=== PATIENT | female | born 1940 | race Caucasian/White ===

== ENCOUNTER 2018-07-15 18:55 | Inpatient (IN) | payer MEDICARE, OTHER ==
[~2018-07-15] VITALS: Ht 162.6 cm; Wt 64.0 kg
[~2018-07-15 18:55] MED LIST: ASPI325; Adult Low Dose81 MG PO; Albuterol2.5 MG/0.5 INH; DIPH50; LEVSOD50 PO; LISI20 PO; METO25ER PO; Norvasc5 MG PO; PRED10 PO; TIOT18 INH
[2018-07-15 19:18] LABS: Source, Urine Catheter
[2018-07-15 19:19] LABS: BASOPHILS ABSOLUTE AUTO 0.04 K/mm3 (0.00-0.23); BASOPHILS PERCENT AUTO 0 % (0-2); EOSINOPHILS ABSOLUTE AUTO 0.04 K/mm3 (0.00-0.68); EOSINOPHILS PERCENT AUTO 0 % (0-6); Hematocrit 40.9 % (33.0-51.0); Hemoglobin 12.9 g/dL (11.5-16.0); IMMATURE GRAN ABSOLUTE AUTO 0.03 K/mm3 (0.00-0.10); IMMATURE GRAN PERCENT AUTO 0 % (0-1); LYMPHOCYTES ABSOLUTE AUTO 1.74 K/mm3 (0.84-5.20); LYMPHOCYTES PERCENT AUTO 17 % (21-46); MONOCYTES ABSOLUTE AUTO 1.14 K/mm3 (0.16-1.47); MONOCYTES PERCENT AUTO 11 % (4-13); Mean Corpuscular HGB 30.5 pg (26.0-34.0); Mean Corpuscular HGB Conc 31.5 g/dL (31.5-36.5); Mean Corpuscular Volume 97 fL (80-100); Mean Platelet Volume 8.9 fL (9.1-12.4); NEUTROPHILS ABSOLUTE AUTO 7.16 K/mm3 (1.96-9.15); NEUTROPHILS PERCENT AUTO 71 % (41-73); Platelet Count 346 K/mm3 (150-400); RDW Coefficient Variation 16.1 % (11.7-14.2); RDW Standard Deviation 57.1 fL (35.1-46.3); Red Blood Cell Count 4.23 M/mm3 (3.80-5.20); White Blood Cell Count 10.15 K/mm3 (4.00-11.30)
[2018-07-15 19:36] LABS: Appearance, Urine Clear (Clear); Bilirubin, Urine Neg (Neg); Blood, Urine 1+ (Neg); Color, Urine Yellow (P-Yellow); Glucose Qualitative, Urine Neg (Neg); Ketones, Urine Neg (Neg); Leukocyte Esterase, Urine Neg (Neg); Nitrite, Urine Neg (Neg); Protein, Urine 1+ (Neg); Urobilinogen, Urine NORM (Normal)
[2018-07-15 19:45] LABS: Bacteria Rare /hpf; Squamous Epithelial Cells Rare /hpf (Few); White Blood Cells, Urine 0-2 /hpf (0-5)
[2018-07-15 19:50] LABS: Alanine Aminotransfer (ALT/SGP 37 U/L (12-78); Albumin, Blood 3.6 g/dL (3.4-5.0); Albumin/Globulin Ratio 0.9 (0.8-1.8); Alk Phos 96 U/L (50-136); Anion Gap 5 mmol/L (6-16); Aspartate Aminotrans (AST/SGOT 70 U/L (12-37); Bilirubin, Total 0.4 mg/dL (0.1-1.0); Blood Urea Nitrogen 40 mg/dL (8-24); Bun/Creatinine Ratio 40.3 (12.0-20.0); CO2, Blood 23 mmol/L (21-32); Calcium, Blood 8.7 mg/dL (8.5-10.1); Chloride, Blood 117 mmol/L (98-108); Creatinine, Blood 0.99 mg/dL (0.40-1.00); Ethanol (Alcohol), Blood, Med <3 mg/dL; Globulin, Blood 4.1 g/dL (2.2-4.0); Glomerular Filtration Rate 57 (60-); Glucose, Blood 103 mg/dL (70-99); Potassium, Blood 3.8 mmol/L (3.5-5.5); Sodium, Blood 145 mmol/L (136-145); Total Protein, Blood 7.7 g/dL (6.4-8.2)
[2018-07-15 20:00] LABS: Troponin I 0.027 ng/mL (0.000-0.040)
[2018-07-16 05:01] LABS: Hematocrit 35.5 % (33.0-51.0); Hemoglobin 11.3 g/dL (11.5-16.0); Mean Corpuscular HGB 30.5 pg (26.0-34.0); Mean Corpuscular HGB Conc 31.8 g/dL (31.5-36.5); Mean Corpuscular Volume 96 fL (80-100); Mean Platelet Volume 9.4 fL (9.1-12.4); Platelet Count 285 K/mm3 (150-400); RDW Coefficient Variation 16.5 % (11.7-14.2); RDW Standard Deviation 57.7 fL (35.1-46.3); Red Blood Cell Count 3.71 M/mm3 (3.80-5.20); White Blood Cell Count 8.58 K/mm3 (4.00-11.30)
[2018-07-16 05:28] LABS: Alanine Aminotransfer (ALT/SGP 32 U/L (12-78); Albumin/Globulin Ratio 0.9 (0.8-1.8); Alk Phos 83 U/L (50-136); Anion Gap 5 mmol/L (6-16); Aspartate Aminotrans (AST/SGOT 54 U/L (12-37); Bilirubin, Total 0.3 mg/dL (0.1-1.0); Blood Urea Nitrogen 36 mg/dL (8-24); Bun/Creatinine Ratio 39.2 (12.0-20.0); CO2, Blood 19 mmol/L (21-32); Calcium, Blood 8.3 mg/dL (8.5-10.1); Chloride, Blood 123 mmol/L (98-108); Creatinine, Blood 0.92 mg/dL (0.40-1.00); Globulin, Blood 3.5 g/dL (2.2-4.0); Glomerular Filtration Rate >60 (60-); Glucose, Blood 159 mg/dL (70-99); Sodium, Blood 147 mmol/L (136-145); Total Protein, Blood 6.5 g/dL (6.4-8.2)
[2018-07-16 10:10] LABS: Adenovirus Not Detected (NOT DETECT); Bordetella pertussis Not Detected (NOT DETECT); Chlamydophila pneumoniae Not Detected (NOT DETECT); Coronavirus 229E Not Detected (NOT DETECT); Coronavirus HKU1 Not Detected (NOT DETECT); Coronavirus NL63 Not Detected (NOT DETECT); Coronavirus OC43 Not Detected (NOT DETECT); Human Metapneumovirus Not Detected (NOT DETECT); Human Rhinovirus/Enterovirus Not Detected (NOT DETECT); Influenza A/2009-H1 Not Detected (NOT DETECT); Influenza A/H1 Not Detected (NOT DETECT); Influenza A/H3 Not Detected (NOT DETECT); Influenza B Not Detected (NOT DETECT); Mycoplasma pneumoniae Not Detected (NOT DETECT); Parainfluenza Virus 1 Not Detected (NOT DETECT); Parainfluenza Virus 2 Not Detected (NOT DETECT); Parainfluenza Virus 3 Not Detected (NOT DETECT); Parainfluenza Virus 4 Not Detected (NOT DETECT); Respiratory Syncytial Virus Not Detected (NOT DETECT)
[2018-07-16 13:18] LABS: Influenza A Not Detected (NOT DETECT)
[2018-07-19 06:09] LABS: Anion Gap 6 mmol/L (6-16); Blood Urea Nitrogen 22 mg/dL (8-24); Bun/Creatinine Ratio 41.7 (12.0-20.0); CO2, Blood 27 mmol/L (21-32); Calcium, Blood 8.7 mg/dL (8.5-10.1); Chloride, Blood 111 mmol/L (98-108); Creatinine, Blood 0.53 mg/dL (0.40-1.00); Glomerular Filtration Rate >60 (60-); Glucose, Blood 148 mg/dL (70-99); Potassium, Blood 3.8 mmol/L (3.5-5.5); Sodium, Blood 144 mmol/L (136-145)
[2018-07-19] MEDS ORDERED: AMLO10 PO (11:53)
[2018-07-19] MEDS ORDERED: ATOR40TA PO (11:54)
[2018-07-19] MEDS ORDERED: NICO21TP TOP (11:56)
[2018-07-19] MEDS ORDERED: Azithromycin250 MG PO (11:56)
[2018-07-19] MEDS ORDERED: DULERA 200 MCG/13 GM INH (11:57)
[2018-07-19] MEDS ORDERED: PRED20 (11:58)
== END 2018-07-19 12:45 | disposition home or self-care (01) | DRG 191 ==
LOC: ER 18:55 → MEDS 20:55 → ENPENDDIS 07-19 10:00 → MEDS 07-19 12:45
PROVIDERS: Emergency Medicine; Hospitalist; Internal Medicine
DX: J44.1 Chronic obstructive pulmonary disease with (acute) exacerbation (principal); J96.11 Chronic respiratory failure with hypoxia; E03.9 Hypothyroidism, unspecified; I10 Essential (primary) hypertension; E66.9 Obesity, unspecified; Z51.5 Encounter for palliative care; Z86.73 Personal history of transient ischemic attack (TIA), and cerebral infarction without residual deficits; Z66 Do not resuscitate; Z89.511 Acquired absence of right leg below knee; Z99.81 Dependence on supplemental oxygen; F17.210 Nicotine dependence, cigarettes, uncomplicated
CPT/HCPCS: 36415; 70450; 71045; 80048; 80053; 81001; 83880; 84145; 84484; 85025; 85027; 87486; 87581; 87633; 87798; 93005; 93010; 93306; 93880; 93971; 94640; 94644; 94664; 94667; 94760; 96361; 96374; 97116; 97162; 97166; 97530; 97535; 99285-25; 99406; G0480; G8978; G8979; G8987; G8988; J1650; J2405; J2930; J7030; P9612

== ENCOUNTER → 2018-11-03 | Outpatient (CLI) | payer MEDICARE, OTHER ==
[~2018-11-03] MED LIST changes: +AMLO10 PO; +ATOR40TA PO; +Azithromycin250 MG PO; +DULERA 200 MCG/13 GM INH; +NICO21TP TOP; +PRED20
== END | disposition home or self-care (01) ==
LOC: LAB SHORT 10:10 → LAB 10:10 → LAB FUT 11-01 17:50
DX: R19.7 Diarrhea, unspecified (principal)
CPT/HCPCS: 87493

== ENCOUNTER 2019-02-03 14:45 | Inpatient (IN) | payer MEDICARE, OTHER ==
[~2019-02-03] VITALS: Ht 162.6 cm; Wt 60.1 kg
[~2019-02-03 14:45] MED LIST changes: +ALBU2.5V5 NEB; -Albuterol2.5 MG/0.5 INH; -LISI20 PO; +ZESTRIL40 MG PO
[2019-02-03 15:24] LABS: BASOPHILS ABSOLUTE AUTO 0.01 K/mm3 (0.00-0.23); BASOPHILS PERCENT AUTO 0 % (0-2); EOSINOPHILS ABSOLUTE AUTO 0.01 K/mm3 (0.00-0.68); EOSINOPHILS PERCENT AUTO 0 % (0-6); Hematocrit 31.7 % (33.0-51.0); Hemoglobin 10.3 g/dL (11.5-16.0); IMMATURE GRAN ABSOLUTE AUTO 0.02 K/mm3 (0.00-0.10); IMMATURE GRAN PERCENT AUTO 0 % (0-1); LYMPHOCYTES ABSOLUTE AUTO 0.67 K/mm3 (0.84-5.20); LYMPHOCYTES PERCENT AUTO 11 % (21-46); MONOCYTES ABSOLUTE AUTO 0.49 K/mm3 (0.16-1.47); MONOCYTES PERCENT AUTO 8 % (4-13); Mean Corpuscular HGB 32.5 pg (26.0-34.0); Mean Corpuscular HGB Conc 32.5 g/dL (31.5-36.5); Mean Corpuscular Volume 100 fL (80-100); Mean Platelet Volume 9.6 fL (9.1-12.4); NEUTROPHILS ABSOLUTE AUTO 5.07 K/mm3 (1.96-9.15); NEUTROPHILS PERCENT AUTO 81 % (41-73); Platelet Count 253 K/mm3 (150-400); RDW Standard Deviation 54.7 fL (35.1-46.3); Red Blood Cell Count 3.17 M/mm3 (3.80-5.20); White Blood Cell Count 6.27 K/mm3 (4.00-11.30)
[2019-02-03 15:32] LABS: PCO2 Arterial 28.4 mmHg (35-45); PO2 Arterial 104 mmHg (80-100); pH Blood Arterial 7.47 (7.35-7.45)
[2019-02-03 15:46] LABS: Albumin, Blood 3.5 g/dL (3.4-5.0); Albumin/Globulin Ratio 1.2 (0.8-1.8); Bilirubin, Total 0.4 mg/dL (0.1-1.0); Bun/Creatinine Ratio 31.2 (12.0-20.0); Calcium, Blood 8.3 mg/dL (8.5-10.1); Creatinine, Blood 1.09 mg/dL (0.40-1.00); Globulin, Blood 2.9 g/dL (2.2-4.0); Potassium, Blood 3.2 mmol/L (3.5-5.5); Total Protein, Blood 6.4 g/dL (6.4-8.2)
[2019-02-03 15:49] LABS: Source, Urine Clean Catch
[2019-02-03 15:53] LABS: Bilirubin, Urine Neg (Neg); Blood, Urine 3+ (Neg); Glucose Qualitative, Urine Neg (Neg); Ketones, Urine 1+ (Neg); Leukocyte Esterase, Urine 1+ (Neg); Nitrite, Urine Neg (Neg); Protein, Urine 3+ (Neg); Specific Gravity, Urine 1.025 (1.003-1.022); Urobilinogen, Urine NORM (Normal)
[2019-02-03 16:11] LABS: Appearance, Urine Hazy (Clear); Color, Urine Yellow (P-Yellow)
[2019-02-03 16:14] LABS: White Blood Cells, Urine 0-2 /hpf (0-5)
[2019-02-03 16:16] LABS: Amorphous Mod (0-Heavy); Squamous Epithelial Cells Few /hpf (Few)
[2019-02-03 16:19] LABS: Bacteria Many /hpf; Granular Casts Rare /lpf (0)
[2019-02-03 17:13] LABS: Magnesium, Blood 3.4 mg/dL (1.6-2.4); Phosphorus, Blood 2.7 mg/dL (2.5-4.9)
[2019-02-03 17:29] LABS: Prealbumin, Blood 21.2 mg/dL (20.0-40.0)
[2019-02-03 17:37] LABS: Thyroid Stimulating Hormone 0.996 uIU/mL (0.360-4.800)
[2019-02-03 17:52] LABS: Creatine Kinase MB Index 2.2 (0.0-4.0)
[2019-02-03 19:00] LABS: U Amphetamine Screen Not Detected; U Barbituate Screen Not Detected; U Benzodiazapine Screen Not Detected; U Buprenorphine Screen Not Detected; U Cannabinoids Screen Not Detected; U Cocaine Screen Not Detected; U Methadone Screen Not Detected; U Methamphetamine Screen Not Detected; U Opiates Screen Not Detected; U Oxycodone Screen Not Detected; U Phencyclidine Screen Not Detected; U Propoxyphene Screen Not Detected
--- NOTE | 2019-02-03 19:14 | NUR ---
PT ARRIVED TO ICU 3 VIA STRETCHER. PT ALERT, SLOW TO RESPOND TO QUESTIONS, BUT ANSWERING APPROPRIATELY. PT TRANSFERRED TO NEW BED. BOLUS FROM ED FINISIHING INFUSING AND POTASSIUM INFUSING WELL. PT'S SON AT THE BEDSIDE. REPORT GIVEN TO RADHA AGARWAL.
[2019-02-03 20:00] LABS: C-REACTIVE PROTEIN, EXT RANGE <0.290 mg/dL (0.000-0.300)
[2019-02-03 20:08] LABS: Free Thyroxine 0.42 ng/dL (0.70-1.60)
[2019-02-03 20:10] LABS: Triiodothyronine, Free 0.83 pg/mL (2.18-3.98)
--- NOTE | 2019-02-03 21:30 | NUR ---
[place] of Care: Care assumed at 1900hr. Patient alert and oriented x4, but slow to respond. Denies pain, discomfort, SOB, or dyspnea. O2-92-95% on RA. Heart rhythm shows sinus bradycardia 45-50, systolic BP-70's-90's, MAP's- 50's-60's. Repeat lactic- 2.3, spoke with Robert Luu SEMICONDUCTOR EQUIPMENT TECHNICIAN and received order for additional LR bolus, x1L. X2 peripheral IV's patent and intact, infusing without difficulty. Robert Luu SEMICONDUCTOR EQUIPMENT TECHNICIAN to patient's room approx 2100hr, Patient's BP continues to be low. Received orders for IV and PO thyroid replacment medications r/t low t3/t4 levels. Also received orders to start low dose Dopamine via peripheral IV to keep MAP's above 60. BP slightly improving, MAP's 60's-70's at this time, will continue to monitor and start Dopamine gtt if indicated. X1 large brown loose BP via bed fountain at shift change. No void so far this shift, bladder scan showed 25ml, will continue to monitor and place Albarran cath if indicated.
[2019-02-03 22:02] LABS: Percent Saturation 9.2 % (15.0-50.0)
[2019-02-04 03:22] LABS: BASOPHILS PERCENT AUTO 0 % (0-2); EOSINOPHILS PERCENT AUTO 0 % (0-6); Hematocrit 31.9 % (33.0-51.0); Hemoglobin 9.9 g/dL (11.5-16.0); IMMATURE GRAN ABSOLUTE AUTO 0.02 K/mm3 (0.00-0.10); IMMATURE GRAN PERCENT AUTO 0 % (0-1); LYMPHOCYTES ABSOLUTE AUTO 0.37 K/mm3 (0.84-5.20); LYMPHOCYTES PERCENT AUTO 5 % (21-46); MONOCYTES ABSOLUTE AUTO 0.07 K/mm3 (0.16-1.47); MONOCYTES PERCENT AUTO 1 % (4-13); Mean Corpuscular HGB 31.8 pg (26.0-34.0); Mean Platelet Volume 9.5 fL (9.1-12.4); NEUTROPHILS ABSOLUTE AUTO 6.96 K/mm3 (1.96-9.15); NEUTROPHILS PERCENT AUTO 94 % (41-73); Platelet Count 243 K/mm3 (150-400); RDW Coefficient Variation 15.3 % (11.7-14.2); RDW Standard Deviation 57.5 fL (35.1-46.3); Red Blood Cell Count 3.11 M/mm3 (3.80-5.20); White Blood Cell Count 7.42 K/mm3 (4.00-11.30)
[2019-02-04 03:25] LABS: Mean Corpuscular Volume 103 fL (80-100)
[2019-02-04 03:36] LABS: Anion Gap 3 mmol/L (6-16); Blood Urea Nitrogen 30 mg/dL (8-24); Bun/Creatinine Ratio 33.6 (12.0-20.0); CO2, Blood 23 mmol/L (21-32); Calcium, Blood 7.6 mg/dL (8.5-10.1); Chloride, Blood 121 mmol/L (98-108); Creatinine, Blood 0.89 mg/dL (0.40-1.00); Glomerular Filtration Rate >60 (60-); Glucose, Blood 140 mg/dL (70-99); International Normalized Ratio 1.14; Potassium, Blood 4.4 mmol/L (3.5-5.5); Prothrombin Time Results 11.9 Sec (9.7-11.5); Sodium, Blood 147 mmol/L (136-145)
--- NOTE | 2019-02-04 06:03 | NUR ---
Shift Summary: Patient slept well throughout shift, easily roused to verbal stimuli. Continues to respond slowly to questions, but remains A/O. Denies pain, discomfort, SOB, and dyspnea, but does become SOB when turning dzcf-pb-wutw in bed. Dopamine gt titrated up from 3mcg/kg/min to 10 mcg/kg/min to keep MAP above 60. Call placed to Dr. Rain r/t Dopamine gtt and BP. Received confirmation from Dr. Rain to continue to use peripheral IV for Dopamine gtt at this time. BP slowly improving, heart rhythm continues to show sinus rhythm 50's-60's. Peripheral IV's x2 remain patent and intact. Voided x2 200ml void via bedpan without difficulty. Now sitting upright in bed watching tv, eating a yogurt. Will continue to monitor until report to day shift RN.
--- NOTE | 2019-02-04 07:35 | NUR ---
BEGINNING OF SHIFT Assumed care at 0700 with Helen GARCIA. Bedside report received from Cole GARCIA. Pt A&O x 2. Not able to state correct month or year. When asked a question, pt is slow to respond and has repetitive speech. Pt able to follow directions. Pt on 2 LPM NC. Wears 4 LPM NC at home while sleeping. Pt awake in bed at time of report. Plan to titrate O2 off. Coarse bibasilar crackles noted on lung auscultation. Sinus bradycardia per monitor. Dopamine infusing at 9 mcg/kg/min into 18 ga IV in L AC. MAP between 60 and 70. Trace peripheral edema noted to LLE. 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 Bed in lowest position. Call light in reach. Pt denies need at this time.
--- NOTE | 2019-02-04 08:42 | NUR ---
echocardiogram completed
--- NOTE | 2019-02-04 09:25 | NUR ---
UPDATE Pt's son, Lawrence, in room. Pt's son inquires about IV fluids when this RN switches out LR for NS. Education provided. Son verbalizes understanding. Lab in room at this time to draw labs. BP low 80s at this time. Pt remains at 9 mcg/kg/min dopamine. Midodrine PO administered.
--- NOTE | 2019-02-04 16:11 | NUR ---
[facility] initial visit: Per admit trigger, I met with pt's son to offer information about POLST/Advanced Directive. He was very interested in completing one or both documents for his mom. Other than this information, he did not want to talk with a senior lead java developer. Pt appears frail, but well cared for by nursing. I will remain available.
--- NOTE | 2019-02-04 18:32 | NUR ---
POLST DISCUSSION PT ASKING TO THROW POLST AND ADVANCED DIRECTIVE PAPERWORK AWAY, PAPERWORK EMPTY. THIS RN ASKED PT IF SHE WOULD LIKE HELP FILLING OUT THE PAPERWORK. PT. STATES "NO MY SONS KNOW WHAT TO DO", EXPLAINED THE IMPORTANCE OF PAPERWORK SO HER WISHES ARE WELL KNOWN BY FAMILY. ASKED PT IF WE COULD REVIEW THE FORM TOGETHER AND SHE AGREED. EXPLAINED THE ATTEMPT RESUSITATION SECTION INCLUDING MEDICATIONS, CPR AND ELECTRICITY TO RESTART THE HEART IF NEEDED, PT STATES "NO I DONT WANT THAT, LET ME GO", ASKED PT. REGARDING SUPPPORTING BREATHING WITH BREATHING TUBE IF NEEDED, PT STATES "NO I DONT WANT THAT", CLARIFIED WITH PT AGAIN ALONG WITH VALERY GARCIA THAT PT WISHES TO BE DNR/DNI AND PT STATES "MY SONS WILL KNOW THIS". EXPLAINED TO PT THAT CURRENTLY HER "CODE STATUS" IS "FULL CODE" BECAUSE HER FAMILY WAS UNSURE OF HER WISHES AND SHE WAS UNABLE TO ANSWER, PT STATES "WELL IM TELLING YOU NOW", ENCOURAGED PT TO FILL OUT POLST FOR WITH RN, PT REFUSING TO FILL OUT FORM AT THIS TIME. WILL HAVE CONVERSATION WITH PT SON WHEN HE RETURNS THIS EVENING TO CLARIFY PT WISHES AND FILL OUT POLST FORM.
--- NOTE | 2019-02-04 18:35 | NUR ---
SHIFT SUMMARY At one point, pt required dopamine titrated up to 10 mcg/kg/min. After florinef and midodrine added to plan of care, this RN was able to gradually titrate dopamine down to 6 mcg/kg/min. Dopamine infusing into PICC line, placed by Adriana GARCIA. Pt is able to converse with staff more easily than compared to this morning. Pt answers questions more quickly and is not repetitive. Pt utilizes call light appropriately and is able to verbalize needs to staff. Pt voids urine into bedpan. Repositions independently. Will continue to closely monitor until care handoff and bedside report with oncoming RN
--- NOTE | 2019-02-04 19:53 | NUR ---
PATIENT AWAKE WATCHING TV. SLIGHT CONFUSION REGARDING DATE, AWARE OF BEING IN THE HOSPITAL AND THAT IT IS JANUARY. PATIENT SOB WITH HAVING CONVERSATION, DENIES FEELING SOB AND DENIES PAIN. OXYGEN 5L/NC WITH SAT98% DECREASED OXYGEN TO 4L/NC DOPAMINE CONTINUES FOR HYPOTENSION AND BRADYCARDIA.
--- NOTE | 2019-02-04 20:53 | NUR ---
PATIENT VISITING WITH BOTH SON'S. HOLDING GOOD CONVERSATION. CONTINUES TO BE SOB WITH CONVERSATION.
[2019-02-05 03:57] LABS: BASOPHILS ABSOLUTE AUTO 0.01 K/mm3 (0.00-0.23); BASOPHILS PERCENT AUTO 0 % (0-2); EOSINOPHILS PERCENT AUTO 0 % (0-6); Hematocrit 28.5 % (33.0-51.0); Hemoglobin 8.9 g/dL (11.5-16.0); IMMATURE GRAN ABSOLUTE AUTO 0.09 K/mm3 (0.00-0.10); IMMATURE GRAN PERCENT AUTO 1 % (0-1); LYMPHOCYTES ABSOLUTE AUTO 0.36 K/mm3 (0.84-5.20); LYMPHOCYTES PERCENT AUTO 4 % (21-46); MONOCYTES ABSOLUTE AUTO 0.43 K/mm3 (0.16-1.47); MONOCYTES PERCENT AUTO 5 % (4-13); Mean Corpuscular HGB 32.2 pg (26.0-34.0); Mean Corpuscular HGB Conc 31.2 g/dL (31.5-36.5); Mean Corpuscular Volume 103 fL (80-100); Mean Platelet Volume 9.6 fL (9.1-12.4); NEUTROPHILS ABSOLUTE AUTO 8.15 K/mm3 (1.96-9.15); NEUTROPHILS PERCENT AUTO 90 % (41-73); Platelet Count 216 K/mm3 (150-400); RDW Coefficient Variation 15.3 % (11.7-14.2); Red Blood Cell Count 2.76 M/mm3 (3.80-5.20); White Blood Cell Count 9.04 K/mm3 (4.00-11.30)
[2019-02-05 04:22] LABS: Alanine Aminotransfer (ALT/SGP 28 U/L (12-78); Albumin, Blood 2.9 g/dL (3.4-5.0); Albumin/Globulin Ratio 1.1 (0.8-1.8); Alk Phos 74 U/L (50-136); Anion Gap 3 mmol/L (6-16); Aspartate Aminotrans (AST/SGOT 32 U/L (12-37); Bilirubin, Total 0.4 mg/dL (0.1-1.0); Blood Urea Nitrogen 29 mg/dL (8-24); Bun/Creatinine Ratio 39.2 (12.0-20.0); CO2, Blood 22 mmol/L (21-32); Calcium, Blood 7.9 mg/dL (8.5-10.1); Chloride, Blood 121 mmol/L (98-108); Creatinine, Blood 0.74 mg/dL (0.40-1.00); Globulin, Blood 2.7 g/dL (2.2-4.0); Glomerular Filtration Rate >60 (60-); Glucose, Blood 119 mg/dL (70-99); Potassium, Blood 4.4 mmol/L (3.5-5.5); Sodium, Blood 146 mmol/L (136-145); Total Protein, Blood 5.6 g/dL (6.4-8.2)
--- NOTE | 2019-02-05 06:13 | NUR ---
SUMMARY PATIENT SLEEPING OFF AND ON T/O NIGHT. CONTINUES TO BE SOB WITH SLIGHT ACTIVITY AND WITH TALKING. PATIENTS SON VERBALIZED THE LEVEL OF SOB IS AT HER BASELINE AT THIS TIME. OXYGEN TITRATED TO 2L/NC WITH BIOX 91-94% DOPAMINE TITRATED OFF SEE FLOW SHEET FOR VITALS AND TITRATIONS. PATIENT SLIGHTLY CONFUSED T/O THE NIGHT, THIS AM PATIENT ABLE TO REMEMBER HOW TO USE CALL LIGHT, TV CONTROL AND BED CONTROL.
--- NOTE | 2019-02-05 07:15 | NUR ---
ASSUMED CARE: PT RESTING QUIETLY IN BED, AWAKE, SLOW TO RESPOND, SLIGHTLY CONFUSED. WAS WORKING ON PUTTING NC BACK IN NOSE AND COULDN'T FIND PRONGS THEN GOT DISTRACTED WITH HEARING AIDS SO NURSE ASSISTED DUE TO DESATURATION ON ROOM AIR. CURRENTLY ON 3L O2 AND SATTING MID 90S. DOPAMINE HAS BEEN OFF SINCE 214. AUDIBLE WHEEZE WHEN STANDING AT BEDSIDE. NO FURTHER CONCERNS AT THIS TIME.
--- NOTE | 2019-02-05 08:27 | NUR ---
DR COLEMAN IN TO SEE PT. AWARE THAT PT HAS DEVELOPED WHEEZE OVERNIGHT AND HAS BEEN POSITIVE ON I AND O LAST FEW DAYS. TO ENTER NEW ORDERS. PT HAS STATUS CHANGE WELL. FINISHER FIBERGLASS BOAT PARTS AWARE
[2019-02-05 09:45] LABS: Follicle Stimulating Hormone 31.7 mIU/ml; Luteinizing Hormone 18.8 mIU/ml; Prolactin 36.7 ng/mL (2.74-19.64)
[2019-02-05 09:47] LABS: Thyroid Stimulating Hormone 0.184 uIU/mL (0.360-4.800)
--- NOTE | 2019-02-05 11:09 | NUR ---
DR COLEMAN MADE AWARE OF NEW LAB RESULTS. BELIEVES HYPOTHALEMIC OR PITUITARY INSUFFICIENCY. NO NEW ORDERS AT THIS TIME.
--- NOTE | 2019-02-05 11:58 | NUR ---
REPORT CALLED TO YESENIA GARCIA. PT'S SON ELMA HAS BEEN NOTIFIED FOR PT'S TRANSFER TO ROOM 327. TRANSFERRED VIA BED BY FRESH FOOD MANAGER. NO FURTHER QUESTIONS OR CONCERNS.
--- NOTE | 2019-02-05 16:59 | NUR ---
SHIFT SUMMARY 1208 RECEIVED PT TO RM 327 VIA GURNEY FROM ICU. SLIDE TX TO BED. RECEIVED REPORT FROM NATALIA GARCIA. PT TO ER D/T INCREASING CONFUSION AND NONCOMPLIANCE WITH MEDICATIONS. PT RECEIVED SEVERAL FLUID BOLUS FOR LOW HR AND BP AND PLACED ON DOPAMINE DRIP. PT IMPROVED AND REPORTS THAT SHE DOES FEEL BETTER. LUNGS T/O DIMINISHED WITH EXP WHEEZES. DYSPNEA WITH ANY EXERTION, AND WHILE UP IN THE CHAIR TALKING WITH VISITOR. APPEARS TO BE COMFORTABLE AT REST IN BED AT THIS TIME. PT HAD BEEN BED BOUND WHILE IN ICU, BUT P/T ABLE TO WORK WITH PT AFTER LUNCH UP HERE. PT WITH RBKA, AND NORMALLY UP AND MOVING AROUND. HX OF COPD, CHF AND HYPOTHYROID, PER REPORT. PT LIVES WITH ONE OF HER SONS, WHO IS NOW IN RM VISITING. CURRENTLY ON 3L NC, BUT REPORTED 2-4L O2 WHEN AT HOME. SR ON TELE PER MX TECH. CALLED FOR BED JAIN EARLIER, BUT NOW ABLE TO GET UP. DENIED NEEDS. CALL LT IN REACH.
[2019-02-06 05:48] LABS: BASOPHILS PERCENT AUTO 0 % (0-2); EOSINOPHILS PERCENT AUTO 0 % (0-6); Hematocrit 27.7 % (33.0-51.0); Hemoglobin 8.8 g/dL (11.5-16.0); IMMATURE GRAN ABSOLUTE AUTO 0.09 K/mm3 (0.00-0.10); IMMATURE GRAN PERCENT AUTO 1 % (0-1); LYMPHOCYTES ABSOLUTE AUTO 0.44 K/mm3 (0.84-5.20); LYMPHOCYTES PERCENT AUTO 6 % (21-46); MONOCYTES ABSOLUTE AUTO 0.59 K/mm3 (0.16-1.47); MONOCYTES PERCENT AUTO 8 % (4-13); Mean Corpuscular HGB 32.4 pg (26.0-34.0); Mean Corpuscular HGB Conc 31.8 g/dL (31.5-36.5); Mean Corpuscular Volume 102 fL (80-100); Mean Platelet Volume 9.7 fL (9.1-12.4); NEUTROPHILS ABSOLUTE AUTO 6.15 K/mm3 (1.96-9.15); NEUTROPHILS PERCENT AUTO 85 % (41-73); Platelet Count 204 K/mm3 (150-400); RDW Coefficient Variation 15.4 % (11.7-14.2); RDW Standard Deviation 56.9 fL (35.1-46.3); Red Blood Cell Count 2.72 M/mm3 (3.80-5.20); White Blood Cell Count 7.27 K/mm3 (4.00-11.30)
--- NOTE | 2019-02-06 06:03 | NUR ---
SHIFT SUMMARY PATIENT AAOX4. RIGHT UPPER ARM PICC INTACT. R BKA WITH PROSTHESIS IN ROOM. PATIENT UP TO BSC WITH STANDBY ASSIST. TELEMETRY- NSR 70'S. NO ACUTE EVENTS OVERNIGHT.
[2019-02-06 06:05] LABS: Alanine Aminotransfer (ALT/SGP 30 U/L (12-78); Albumin/Globulin Ratio 1.1 (0.8-1.8); Alk Phos 72 U/L (50-136); Anion Gap 3 mmol/L (6-16); Aspartate Aminotrans (AST/SGOT 27 U/L (12-37); Bilirubin, Total 0.3 mg/dL (0.1-1.0); Blood Urea Nitrogen 26 mg/dL (8-24); Bun/Creatinine Ratio 33.5 (12.0-20.0); CO2, Blood 26 mmol/L (21-32); Calcium, Blood 8.4 mg/dL (8.5-10.1); Chloride, Blood 119 mmol/L (98-108); Creatinine, Blood 0.78 mg/dL (0.40-1.00); Globulin, Blood 2.7 g/dL (2.2-4.0); Glomerular Filtration Rate >60 (60-); Glucose, Blood 117 mg/dL (70-99); Potassium, Blood 3.9 mmol/L (3.5-5.5); Sodium, Blood 148 mmol/L (136-145); Total Protein, Blood 5.7 g/dL (6.4-8.2)
--- NOTE | 2019-02-06 16:55 | NUR ---
SHIFT SUMMARY PT HAS HAD NO COMPLAINTS THIS SHIFT. PT WORKED WITH PHYSICAL THERAPY THIS SHIFT AND AMBULATED WITH THEM. PT UP TO CHAIR AND BATHROOM WITH ASSIST. PT CALLS APPROPRIATELY FOR ASSISTANCE. PT HAS BLACK STOOL PER PT AND REFRACTIVE SURGEON. THIS RN HAS NOT SEEN STOOL. PT HAD BM BEFORE HAT PLACED FOR SPECIMEN AND 1 INCONTINENT STOOL SO STAFF HAS BEEN UNABLE TO COLLECT THIS SHIFT. BLOOD PRESSURE WAS ELEVATED EARLIER AND DR. COLEMAN WAS CALLED. HYDRALAZINE ORDERED AND GIVEN PER EMAR. BP WNL SINCE HYDRALAZINE GIVEN. NO ACUTE CHANGES THIS SHIFT. CALL LIGHT IN REACH. WILL CONTINUE TO MONITOR AND REPORT TO ONCOMING RN.
[2019-02-07 04:58] LABS: BASOPHILS ABSOLUTE AUTO 0.01 K/mm3 (0.00-0.23); BASOPHILS PERCENT AUTO 0 % (0-2); EOSINOPHILS PERCENT AUTO 0 % (0-6); Hematocrit 26.3 % (33.0-51.0); Hemoglobin 8.4 g/dL (11.5-16.0); IMMATURE GRAN ABSOLUTE AUTO 0.11 K/mm3 (0.00-0.10); IMMATURE GRAN PERCENT AUTO 2 % (0-1); LYMPHOCYTES ABSOLUTE AUTO 0.72 K/mm3 (0.84-5.20); LYMPHOCYTES PERCENT AUTO 11 % (21-46); MONOCYTES ABSOLUTE AUTO 0.93 K/mm3 (0.16-1.47); MONOCYTES PERCENT AUTO 14 % (4-13); Mean Corpuscular HGB 31.9 pg (26.0-34.0); Mean Corpuscular HGB Conc 31.9 g/dL (31.5-36.5); Mean Corpuscular Volume 100 fL (80-100); Mean Platelet Volume 9.5 fL (9.1-12.4); NEUTROPHILS ABSOLUTE AUTO 5.03 K/mm3 (1.96-9.15); NEUTROPHILS PERCENT AUTO 74 % (41-73); NRBC ABSOLUTE 0.02 K/mm3 (0.00-0.02); NRBC Auto 0.3 /100 WBC (0.0-0.2); Platelet Count 205 K/mm3 (150-400); RDW Coefficient Variation 15.1 % (11.7-14.2); Red Blood Cell Count 2.63 M/mm3 (3.80-5.20)
[2019-02-07 05:30] LABS: Alanine Aminotransfer (ALT/SGP 31 U/L (12-78); Albumin/Globulin Ratio 1.2 (0.8-1.8); Alk Phos 68 U/L (50-136); Anion Gap 4 mmol/L (6-16); Aspartate Aminotrans (AST/SGOT 29 U/L (12-37); Bilirubin, Total 0.4 mg/dL (0.1-1.0); Blood Urea Nitrogen 21 mg/dL (8-24); Bun/Creatinine Ratio 32.2 (12.0-20.0); CO2, Blood 29 mmol/L (21-32); Calcium, Blood 8.1 mg/dL (8.5-10.1); Chloride, Blood 114 mmol/L (98-108); Creatinine, Blood 0.65 mg/dL (0.40-1.00); Globulin, Blood 2.5 g/dL (2.2-4.0); Glomerular Filtration Rate >60 (60-); Glucose, Blood 110 mg/dL (70-99); Potassium, Blood 2.8 mmol/L (3.5-5.5); Sodium, Blood 147 mmol/L (136-145); Total Protein, Blood 5.5 g/dL (6.4-8.2)
--- NOTE | 2019-02-07 05:41 | NUR ---
SHIFT SUMMARY PT IS A 78 Y/O FEMALE, ADMITTED FOR TOXIC METABOLIC ENCEPHALOPATHY. PT IS A&O X 3, OCCASIONALLY FORGETFUL. PT HAS A R BKA WITH A PROSTHETIC LEG, AND IS A 1PA UP. NO COMPLAINTS OF PAIN, NAUSEA OR SOB DURING THE NIGHT. PT SLEPT WELL. VITALS REMAINED STABLE. NO ACUTE CHANGES IN PT CONDITION NOTED. WILL CONTINUE TO MONITOR AND TREAT PER EMAR UNTIL HAND OFF TO DAY SHIFT.
[2019-02-07 14:11] LABS: Stool Occult Blood Guaiac 1 Pos (Neg)
--- NOTE | 2019-02-07 17:07 | NUR ---
SHIFT SUMMARY NO CHANGES IN ASSESSMENT AT THIS TIME. PT RECIEVED IRON INJECTION THIS SHIFT. PT PLANNED TO DC TOMORROW. BP INCREASED THIS EVENING TO 160/80. ZESTRIL TO BE GIVEN THIS EVENING. WILL CONTINUE TO MONITOR. OTHER VITALS STABLE. WILL CONTINUE TO MONITOR UNTIL TURNOVER IS COMPLETE.
[2019-02-08 05:09] LABS: BASOPHILS ABSOLUTE AUTO 0.03 K/mm3 (0.00-0.23); BASOPHILS PERCENT AUTO 0 % (0-2); EOSINOPHILS PERCENT AUTO 0 % (0-6); Hematocrit 30.4 % (33.0-51.0); Hemoglobin 9.7 g/dL (11.5-16.0); IMMATURE GRAN ABSOLUTE AUTO 0.22 K/mm3 (0.00-0.10); IMMATURE GRAN PERCENT AUTO 2 % (0-1); LYMPHOCYTES ABSOLUTE AUTO 1.58 K/mm3 (0.84-5.20); LYMPHOCYTES PERCENT AUTO 16 % (21-46); MONOCYTES ABSOLUTE AUTO 1.56 K/mm3 (0.16-1.47); MONOCYTES PERCENT AUTO 16 % (4-13); Mean Corpuscular HGB 32.3 pg (26.0-34.0); Mean Corpuscular HGB Conc 31.9 g/dL (31.5-36.5); Mean Corpuscular Volume 101 fL (80-100); Mean Platelet Volume 9.6 fL (9.1-12.4); NEUTROPHILS ABSOLUTE AUTO 6.23 K/mm3 (1.96-9.15); NEUTROPHILS PERCENT AUTO 65 % (41-73); NRBC ABSOLUTE 0.09 K/mm3 (0.00-0.02); NRBC Auto 0.9 /100 WBC (0.0-0.2); Platelet Count 243 K/mm3 (150-400); RDW Coefficient Variation 15.4 % (11.7-14.2); RDW Standard Deviation 56.6 fL (35.1-46.3); White Blood Cell Count 9.62 K/mm3 (4.00-11.30)
--- NOTE | 2019-02-08 05:48 | NUR ---
SHIFT SUMMARY PT HAS BEEN AWAKE ON/OFF T/O NIGHT. AOX4. DENIES PAIN OR NAUSEA. REPORTS FEELING DYSPNEIC AFTER ANY EXERTION & HAS TO SIT ON SIDE OF BED TO "CATCH BREATH" AFTER [place] [facility] SPO2 >90% ON 3L NC, LUNGS HAVE EXPIRATORY WHEEZES HEARD T/O, BREATHING TX GIVEN PRN PER RT. BP WAS ELEVATED LAST NIGHT @177/95 & 10MG HYDRALAZINE WAS GIVEN, BP DECREASED SLIGHTLY TO 169/88, HOWEVER BP WAS ELEVATED AGAIN THIS AM EVEN AFTER NATURAL RESOURCES MANAGER RECHECKED BP MULTIPLE TIMES IT WAS 200/86 20MG HYDRALAZINE GIVEN & BP FINALLY DECREASED TO 136/76 WHEN I PERSONALLY REASSESSED VITALS. CALL LIGHT IN REACH & PT USES IT APPROPRIATELY, I WILL CONTINUE TO MONITOR.
[2019-02-08 05:56] LABS: Alanine Aminotransfer (ALT/SGP 57 U/L (12-78); Albumin, Blood 3.3 g/dL (3.4-5.0); Albumin/Globulin Ratio 1.1 (0.8-1.8); Alk Phos 80 U/L (50-136); Anion Gap 2 mmol/L (6-16); Aspartate Aminotrans (AST/SGOT 45 U/L (12-37); Bilirubin, Total 0.4 mg/dL (0.1-1.0); Blood Urea Nitrogen 13 mg/dL (8-24); Bun/Creatinine Ratio 25.6 (12.0-20.0); CO2, Blood 31 mmol/L (21-32); Calcium, Blood 8.6 mg/dL (8.5-10.1); Chloride, Blood 114 mmol/L (98-108); Creatinine, Blood 0.51 mg/dL (0.40-1.00); Glomerular Filtration Rate >60 (60-); Glucose, Blood 93 mg/dL (70-99); Potassium, Blood 3.3 mmol/L (3.5-5.5); Sodium, Blood 147 mmol/L (136-145); Total Protein, Blood 6.3 g/dL (6.4-8.2)
[2019-02-08] MEDS ORDERED: LEVSOD100 PO (11:31)
[2019-02-08] MEDS ORDERED: LIOT25 PO (11:33)
[2019-02-08] MEDS ORDERED: PANT40 PO (11:46)
[2019-02-08 12:43] LABS: Stool Occult Blood Guaiac 1 Pos (Neg)
--- NOTE | 2019-02-08 14:11 | NUR ---
PT DISCHARGED. PT DISCHARGED AT 1339. PT IN STABLE CONDITION WITH VSS. PT & SON EDUCATED ON DC INSTRUCTIONS, FOLLOW UP APPOINTMENTS, & NEW MEDICATIONS. MEDS FAXED TO [facility]. PICC LINE REMOVED BY JO VILLALTA RN. PT WHEELED OUT BY AIDE & DRIVEN HOME BY SON.
== END 2019-02-08 13:40 | disposition home health service (06) | DRG 91 ==
LOC: ER 14:45 → ICUW 17:50 → ICUE 18:27 → MEDS 02-05 12:08 → EDPENDDIS 02-08 10:57 → ENPENDDIS 02-08 10:57 → MEDS 02-08 13:40
PROVIDERS: Nurse Practitioner Acute Care; Physician Assistant; ADMIT Internal Medicine
PROC: 02HV33Z Insertion of Infusion Device into Superior Vena Cava, Percutaneous Approach (ICD-10-PCS; principal; 2019-02-04)
PROC: 4A02X4A Measurement of Cardiac Electrical Activity, Guidance, External Approach (ICD-10-PCS; 2019-02-04)
DX: G92 Toxic encephalopathy (principal); R57.1 Hypovolemic shock; E23.0 Hypopituitarism; E87.0 Hyperosmolality and hypernatremia; N17.9 Acute kidney failure, unspecified; I95.9 Hypotension, unspecified; J44.9 Chronic obstructive pulmonary disease, unspecified; I10 Essential (primary) hypertension; E03.9 Hypothyroidism, unspecified; Z86.73 Personal history of transient ischemic attack (TIA), and cerebral infarction without residual deficits; Z99.81 Dependence on supplemental oxygen; D64.9 Anemia, unspecified; Z91.14 Patient's other noncompliance with medication regimen; Z89.511 Acquired absence of right leg below knee; F17.210 Nicotine dependence, cigarettes, uncomplicated; E87.6 Hypokalemia; D15.1 Benign neoplasm of heart
CPT/HCPCS: 36415; 36569; 36600; 70450; 71045; 80048; 80053; 81001; 82024; 82272; 82330; 82533; 82550; 82553; 82570; 82607; 82728; 82746; 82803; 83001; 83002; 83540; 83550; 83605; 83735; 83880; 84100; 84134; 84145; 84146; 84300; 84439; 84443; 84481; 84484; 85025; 85610; 85651; 86140; 87040; 87086; 93005; 93010; 93306; 94640; 94760; 94761; 96361; 96365; 96366; 96375; 97110; 97116; 97162; 97165; 97530; 97535; 99285-25; C1751; J0360; J0696; J1100; J1265; J1644; J1720; J2405; J2543; J2916; J3480; J7030; J7050; J7070; J7120; P9612

== ENCOUNTER 2019-03-01 20:16 | Inpatient (IN) | payer MEDICARE, OTHER ==
[~2019-03-01] VITALS: Ht 170.2 cm; Wt 60.0 kg
[~2019-03-01 20:16] MED LIST changes: +LEVSOD100 PO; +LIOT25 PO; +PANT40 PO
[2019-03-01 20:53] LABS: BASOPHILS ABSOLUTE AUTO 0.01 K/mm3 (0.00-0.23); BASOPHILS PERCENT AUTO 0 % (0-2); EOSINOPHILS ABSOLUTE AUTO 0.07 K/mm3 (0.00-0.68); EOSINOPHILS PERCENT AUTO 1 % (0-6); Hematocrit 33.7 % (33.0-51.0); Hemoglobin 10.3 g/dL (11.5-16.0); IMMATURE GRAN ABSOLUTE AUTO 0.02 K/mm3 (0.00-0.10); IMMATURE GRAN PERCENT AUTO 0 % (0-1); LYMPHOCYTES ABSOLUTE AUTO 0.75 K/mm3 (0.84-5.20); LYMPHOCYTES PERCENT AUTO 13 % (21-46); MONOCYTES ABSOLUTE AUTO 0.77 K/mm3 (0.16-1.47); MONOCYTES PERCENT AUTO 13 % (4-13); Mean Corpuscular HGB 31.1 pg (26.0-34.0); Mean Corpuscular HGB Conc 30.6 g/dL (31.5-36.5); Mean Corpuscular Volume 102 fL (80-100); Mean Platelet Volume 9.3 fL (9.1-12.4); NEUTROPHILS ABSOLUTE AUTO 4.11 K/mm3 (1.96-9.15); NEUTROPHILS PERCENT AUTO 72 % (41-73); Platelet Count 412 K/mm3 (150-400); RDW Coefficient Variation 14.9 % (11.7-14.2); RDW Standard Deviation 56.1 fL (35.1-46.3); Red Blood Cell Count 3.31 M/mm3 (3.80-5.20); White Blood Cell Count 5.73 K/mm3 (4.00-11.30)
[2019-03-01 21:14] LABS: Alanine Aminotransfer (ALT/SGP 20 U/L (12-78); Albumin, Blood 3.1 g/dL (3.4-5.0); Albumin/Globulin Ratio 0.9 (0.8-1.8); Alk Phos 120 U/L (50-136); Anion Gap 5 mmol/L (6-16); Aspartate Aminotrans (AST/SGOT 23 U/L (12-37); Bilirubin, Total 0.4 mg/dL (0.1-1.0); Blood Urea Nitrogen 12 mg/dL (8-24); Bun/Creatinine Ratio 22.2 (12.0-20.0); CO2, Blood 28 mmol/L (21-32); Calcium, Blood 9.1 mg/dL (8.5-10.1); Chloride, Blood 107 mmol/L (98-108); Creatinine, Blood 0.54 mg/dL (0.40-1.00); Globulin, Blood 3.3 g/dL (2.2-4.0); Glomerular Filtration Rate >60 (60-); Glucose, Blood 117 mg/dL (70-99); Potassium, Blood 3.8 mmol/L (3.5-5.5); Sodium, Blood 140 mmol/L (136-145); Total Protein, Blood 6.4 g/dL (6.4-8.2); Troponin I <0.015 ng/mL (0.000-0.040)
[2019-03-01 21:19] LABS: Source, Urine Catheter
[2019-03-01 21:21] LABS: Bilirubin, Urine Neg (Neg); Blood, Urine Neg (Neg); Glucose Qualitative, Urine Neg (Neg); Ketones, Urine 2+ (Neg); Leukocyte Esterase, Urine 1+ (Neg); Nitrite, Urine Neg (Neg); Protein, Urine 2+ (Neg); Specific Gravity, Urine 1.025 (1.003-1.022); Urobilinogen, Urine NORM (Normal)
[2019-03-01 21:27] LABS: Color, Urine Yellow (P-Yellow)
[2019-03-01 21:28] LABS: Amorphous Mod (0-Heavy); Appearance, Urine Hazy (Clear); Bacteria Few /hpf; Hyaline Casts 25-50 /lpf (0-2); Red Blood Cells, Urine Not Seen /hpf (0-2); Squamous Epithelial Cells Not Seen /hpf (Few)
[2019-03-02 02:35] LABS: Hematocrit 30.2 % (33.0-51.0); Hemoglobin 9.1 g/dL (11.5-16.0); Mean Corpuscular HGB 31.4 pg (26.0-34.0); Mean Corpuscular HGB Conc 30.1 g/dL (31.5-36.5); Mean Corpuscular Volume 104 fL (80-100); Mean Platelet Volume 9.3 fL (9.1-12.4); Platelet Count 359 K/mm3 (150-400); RDW Standard Deviation 57.2 fL (35.1-46.3); White Blood Cell Count 5.24 K/mm3 (4.00-11.30)
[2019-03-02 02:53] LABS: Alanine Aminotransfer (ALT/SGP 20 U/L (12-78); Albumin, Blood 2.7 g/dL (3.4-5.0); Albumin/Globulin Ratio 0.8 (0.8-1.8); Alk Phos 105 U/L (50-136); Anion Gap 4 mmol/L (6-16); Aspartate Aminotrans (AST/SGOT 20 U/L (12-37); Bilirubin, Total 0.4 mg/dL (0.1-1.0); Blood Urea Nitrogen 12 mg/dL (8-24); Bun/Creatinine Ratio 20.5 (12.0-20.0); CO2, Blood 27 mmol/L (21-32); Calcium, Blood 8.5 mg/dL (8.5-10.1); Chloride, Blood 108 mmol/L (98-108); Creatinine, Blood 0.59 mg/dL (0.40-1.00); Globulin, Blood 3.2 g/dL (2.2-4.0); Glomerular Filtration Rate >60 (60-); Glucose, Blood 119 mg/dL (70-99); Potassium, Blood 3.8 mmol/L (3.5-5.5); Sodium, Blood 139 mmol/L (136-145); Total Protein, Blood 5.9 g/dL (6.4-8.2)
[2019-03-02 05:47] LABS: Adenovirus F 40/41 Not Detected (NOT DETECT); Astrovirus Not Detected (NOT DETECT); Campylobacter Sp Not Detected (NOT DETECT); Cryptosporidium Not Detected (NOT DETECT); Cyclospora Cayetanensis Not Detected (NOT DETECT); E. Coli O157 Not Detected (NOT DETECT); Entamoeba Histolytica Not Detected (NOT DETECT); Enteroaggregative E. coli-EAEC Not Detected (NOT DETECT); Enteropathogenic E. coli-EPEC Not Detected (NOT DETECT); Enterotoxigenic E. coli-ETEC Not Detected (NOT DETECT); Giardia Lamblia Not Detected (NOT DETECT); Norovirus GI/GII Not Detected (NOT DETECT); Plesiomonas Shigelloides Not Detected (NOT DETECT); Rotavirus A Not Detected (NOT DETECT); Salmonella Sp Not Detected (NOT DETECT); Sapovirus Not Detected (NOT DETECT); Shiga Toxin-prod E. coli-STEC Not Detected (NOT DETECT); Shigella/Enteroin E. coli-EIEC Not Detected (NOT DETECT); Vibrio Cholerae Not Detected (NOT DETECT); Vibrio Sp Not Detected (NOT DETECT); Yersinia Enterocolitica Not Detected (NOT DETECT)
--- NOTE | 2019-03-02 05:57 | NUR ---
SHIFT SUMMARY PT NEW ED ADMIT THIS EVENING. ALERT AND ORIENTED. R BKA THAT PT HAS HAD SINCE SHE WAS 11. PT TRANSFERS WELL WITH A SBA TO [facility] [place]. OLD PROSTETIC AT BEDSIDE. PT WITH SOME SOB WITH EXERTION OTHERWISE NONE AT REST. ON 2 L O2 NC WHICH IS PATIENT'S BASELINE. O2 SATS IN THE MID TO HIGH 90'S. LUNG SOUNDS DECREASED. HAS DENIED ANY PAIN. TWO SMALL SOFT PALE BROWN BM'S THIS SHIFT. SAMPLE SENT TO LAB. NO COUGH NOTED SO FAR THIS SHIFT. SAMPLE CUP AT BEDSIDE AND PT EDUCATED ON NEED FOR SPUTUM SAMPLE. BLOOD PRESSURE A LITTLE HYPOTENSIVE BUT OTHERWISE VSS. NO ACUTE CHANGES SINCE ADMISSION. WILL CONTINUE TO MONITOR.
--- NOTE | 2019-03-02 09:53 | NUR ---
AT SHIFT CHANGE SHE SAID SHE WANTS TO GO HOME TODAY. HAS ALREADY ROUNDED. SHE GAVE CHERRY HOPE THAT DISCHARGE IS A POSSIBILITY. PT HAS NO COMPLAINTS AT THIS TIME.
[2019-03-02 13:18] LABS: Hematocrit 31.3 % (33.0-51.0); Hemoglobin 9.5 g/dL (11.5-16.0)
--- NOTE | 2019-03-02 13:48 | NUR ---
HAS ORDERED MORE LAB TESTS FOR TODAY AND TOMORROW. PATIENT SAYS HER ECHO WAS DONE THIS MORNING. PATIENT DISAPPOINTED THAT SHE CANNOT GO HOME TODAY. HER SON HAS VISITED AND WAS IN THE ROOM WHEN ROUNDED A SECOND TIME TODAY.
[2019-03-02 13:49] LABS: Percent Saturation 9.8 % (15.0-50.0)
[2019-03-02 13:54] LABS: Free Thyroxine 1.18 ng/dL (0.70-1.60)
[2019-03-02 14:12] LABS: Thyroid Stimulating Hormone 0.016 uIU/mL (0.360-4.800); Triiodothyronine, Free 3.75 pg/mL (2.18-3.98)
--- NOTE | 2019-03-02 15:49 | NUR ---
SHE HAS BEEN INSTRUCTED ON THE INCENTIVE SPIROMETER BUT CAN ONLY GET IT UP TO 500 MOST OF THE TIME. ONCE SHE HIT THE 750 MARISELA.
--- NOTE | 2019-03-02 17:03 | NUR ---
SHE IS WATCHING TV. I JUST GAVE HER LASIX AND POTASSIUM, A NEW ORDER FROM . SHE GETS I.S. ONLY UP TO 500 BUT USES IT WITHOUT BEING ASKED. SHE LOOKS SOB AT REST. SHE HAS BEEN WEARING 2 1/2L O2 ALL DAY SHE DOES AT HOME. IT LOOKS LIKE THE ECHO WAS CANCELLED. I DID NOT SEE IT DONE THOUGH SHE TOLD ME SHE THOUGHT IT WAS. TELE NSR.NO SPUTUM PRODUCTION THOUGH SHE HAS AN OCCASIONAL COUGH.
[2019-03-03 04:45] LABS: BASOPHILS ABSOLUTE AUTO 0.01 K/mm3 (0.00-0.23); BASOPHILS PERCENT AUTO 0 % (0-2); EOSINOPHILS ABSOLUTE AUTO 0.15 K/mm3 (0.00-0.68); EOSINOPHILS PERCENT AUTO 3 % (0-6); Hematocrit 30.2 % (33.0-51.0); Hemoglobin 9.3 g/dL (11.5-16.0); IMMATURE GRAN ABSOLUTE AUTO 0.02 K/mm3 (0.00-0.10); IMMATURE GRAN PERCENT AUTO 0 % (0-1); LYMPHOCYTES ABSOLUTE AUTO 0.88 K/mm3 (0.84-5.20); LYMPHOCYTES PERCENT AUTO 17 % (21-46); MONOCYTES ABSOLUTE AUTO 0.84 K/mm3 (0.16-1.47); MONOCYTES PERCENT AUTO 17 % (4-13); Mean Corpuscular HGB 31.5 pg (26.0-34.0); Mean Corpuscular HGB Conc 30.8 g/dL (31.5-36.5); Mean Corpuscular Volume 102 fL (80-100); Mean Platelet Volume 9.3 fL (9.1-12.4); NEUTROPHILS ABSOLUTE AUTO 3.17 K/mm3 (1.96-9.15); NEUTROPHILS PERCENT AUTO 62 % (41-73); Platelet Count 360 K/mm3 (150-400); RDW Coefficient Variation 14.9 % (11.7-14.2); Red Blood Cell Count 2.95 M/mm3 (3.80-5.20); White Blood Cell Count 5.07 K/mm3 (4.00-11.30)
[2019-03-03 05:00] LABS: Albumin, Blood 2.6 g/dL (3.4-5.0); Anion Gap 3 mmol/L (6-16); Blood Urea Nitrogen 8 mg/dL (8-24); Bun/Creatinine Ratio 12.8 (12.0-20.0); CO2, Blood 29 mmol/L (21-32); Calcium, Blood 8.7 mg/dL (8.5-10.1); Chloride, Blood 109 mmol/L (98-108); Creatinine, Blood 0.62 mg/dL (0.40-1.00); Glomerular Filtration Rate >60 (60-); Glucose, Blood 88 mg/dL (70-99); Phosphorus, Blood 3.6 mg/dL (2.5-4.9); Potassium, Blood 3.9 mmol/L (3.5-5.5); Sodium, Blood 141 mmol/L (136-145)
--- NOTE | 2019-03-03 06:09 | NUR ---
PT'S BP REMAINED ELEVATED IN THE 170'S-180'S/100'S-110'S. NOTIFIED DR. WILKERSON. NEW ORDER FOR HYDRALAZINE 10 MG X 1 NOW. HYDRALAZINE GIVEN. APPROX 30 MINUTES LATER PT BECAME VERY SOB. RT CALLED TO ROOM. BREATHING TX GIVEN. O2 SATS GOOD IN THE MID 90'S ON 2 L. AFTER BREATHING TX PT'S SOB IMPROVED SLIGHTLY BUT PT STILL BREATHING QUICKLY AND APPEARING SOB. LUNG SOUNDS CLEAR. RT STATING HE BELIEVES IT IS NOT RESPIRATORY RELATED. VITAL SIGNS TAKEN. PT'S BLOOD PRESSURE DROPPED TO 97/63. HEART RATE ELEVATED IN THE 110'S. PT CONTINUES TO FEEL SOB. NOTIFIED DR. WILKERSON AGAIN. NEW ORDER FOR 0.5 MG ATIVAN THINKING IT MAY BE ANXIETY RELATED. 0.5 MG PO ATIVAN GIVEN. PT CALMING DOWN. HEART RATE DOWN TO 108. CONTINUES TO BE A LITTLE SOB AT THIS TIME. WILL CONTINUE TO MONITOR.
--- NOTE | 2019-03-03 06:26 | NUR ---
SHIFT SUMMARY PT CONTINUES TO BE SOB W/ EXERTION. BREATHING LABORED EVEN JUST FROM EXCESSIVE TALKING OR GETTING TO THE BSC. BLOOD PRESSURE ELEVATED THIS EVENING, MEDICATED W/ HYDRALAZINE AND PT'S BP DROPPED DRASTICALLY. FOLLOWING DROP IN BP PT BECAME VERY SOB. SEE NOTE. PT CONTINUES TO BE SOB AT THIS TIME BUT IS RESTING IN BED AND USING HER I.S. ATIVAN GIVEN. PT HAD 1700 ML'S OUT OF URINE THIS EVENING AFTER LASIX WAS GIVEN BY DAY RN. PT UP FREQUENTLY TO VOID. DID NOT SLEEP WELL BECAUSE OF IT. TELEMETRY IN PLACE. READING SR IN THE 80'S MOST OF THE NIGHT EXCEPT WHEN PT WAS WORKED UP WITH BREATHING AND THEN HR JUMPED INTO THE 110'S. LUNG SOUNDS JUST DIMINISHED. NO COUGH OR SPUTUM PRODUCTION TONIGHT. WILL CONTINUE TO MONITOR.
--- NOTE | 2019-03-03 11:12 | NUR ---
SHE HAS BEEN CALM AND COOPERATIVE THIS MORNING AND ATE BREAKFAST WELL. ROUNDED. NEW ORDERS RECEIVED. TELE NELLIE'Chepe. GONZALEZ STARTED FOR PAIN IN HER L THIGH. SHE SAYS IT KNOTS UP NOW AND THEN. HER SON AND DIL ARE HERE TO VISIT NOW. I WAS CALLED BY DIETARY ABOUT RAW EGG BEING LISTED AN ALLERGY IN THE CHART, LIMITING GREATLY WHAT THEY CAN SEND HER. SHE LIKES EGGS LONG THEY ARE COOKED. SHE CAN'T DRINK EGGNOG. ALLERGY DELETED.
--- NOTE | 2019-03-03 15:17 | NUR ---
SHE HAS SLEPT A LOT TODAY. SHE C/O SORE HEEL ON HER L FOOT. NO SIGN OF PRESSURE, AREA RUBBED WITH CREAM BY THE BODY SHOP MANAGER. NO OTHER COMPLAINTS.
--- NOTE | 2019-03-03 16:09 | NUR ---
VSS. BACK TO SLEEP. L HEEL STILL FLOATED. SKIN ON HEEL WNL.
--- NOTE | 2019-03-03 17:08 | NUR ---
SHE HAS SLEPT ALL AFTERNOON AFTER HER SON AND DIL LEFT. RESPIRATIONS CHRONICALLY LABORED. NO ANXIETY TODAY. VSS. NO COMPLAINTS. TELE WAS DC'D. SHE IS USING A KPAD ON HER L THIGH FOR COMFORT, AND HER HEEL IS FLOATED. O2 REMAINS AT 2 1/2 LITERS.
--- NOTE | 2019-03-04 05:29 | NUR ---
SHIFT SUMMARY PT HAD UNEVENTFUL NIGHT. PT HAS BASELINE TREMORS AND SOB THAT WORSENS WHEN PT TALKS AT LENGTH OR GETS UP TO THE BSC. PT HAS R BKA THAT SHE HAS HAD SINCE SHE WAS 11. PT TRANSFERS WELL SBA TO THE BSC AND BACK TO THE BED. HEATING PAD ON L THIGH FOR "KNOT" PT REPORTED WHICH HAS IMPROVED WITH KPAD. PT REMAINS ON 2 L O2 NC WHICH IS PT'S HOME DOSE. LUNG SOUNDS DIMINISHED. NO COUGH NOTED. VSS. NO ACUTE CHANGES THIS SHIFT. WILL CONTINUE TO MONITOR.
--- NOTE | 2019-03-04 11:25 | NUR ---
PT. DISCHrged home WITH SON. NO NEW MEDS. NO QUESTIONS RE INSTRUCTIONS AND MED. TO TAKE AT HOME. SON BROUGHT PT'S HOME O2 IN FOR PATIENT.
== END 2019-03-04 11:31 | disposition home or self-care (01) | DRG 312 ==
LOC: ER 20:16 → MEDS 23:48 → ENPENDDIS 03-04 09:12 → MEDS 03-04 11:31
PROVIDERS: Emergency Medicine; Internal Medicine; Physician Assistant; ADMIT Internal Medicine
DX: I95.2 Hypotension due to drugs (principal); E87.2 Acidosis; J96.11 Chronic respiratory failure with hypoxia; E86.0 Dehydration; T46.4X5A Adverse effect of angiotensin-converting-enzyme inhibitors, initial encounter; J44.9 Chronic obstructive pulmonary disease, unspecified; D63.8 Anemia in other chronic diseases classified elsewhere; Z99.81 Dependence on supplemental oxygen; Z89.511 Acquired absence of right leg below knee; K52.9 Noninfective gastroenteritis and colitis, unspecified; E03.9 Hypothyroidism, unspecified; Z66 Do not resuscitate; I10 Essential (primary) hypertension; Z87.891 Personal history of nicotine dependence; D50.9 Iron deficiency anemia, unspecified
CPT/HCPCS: 0097U; 36415; 71046; 80053; 80069; 81001; 82607; 82728; 82746; 83540; 83550; 83605; 83880; 84145; 84439; 84443; 84481; 84484; 85014; 85018; 85025; 85027; 87040; 87086; 93005; 93010; 93308; 93321; 94640; 94760; 96361; 96365; 99285-25; J0360; J1650; J1940; J1956; J2543; J7030; P9612

== ENCOUNTER 2019-03-16 19:17 | Emergency (ER) | payer MEDICARE, OTHER ==
[~2019-03-16] VITALS: Ht 162.6 cm; Wt 52.2 kg
[2019-03-16 19:59] LABS: BASOPHILS ABSOLUTE AUTO 0.01 K/mm3 (0.00-0.23); BASOPHILS PERCENT AUTO 0 % (0-2); EOSINOPHILS ABSOLUTE AUTO 0.07 K/mm3 (0.00-0.68); EOSINOPHILS PERCENT AUTO 1 % (0-6); Hematocrit 30.4 % (33.0-51.0); Hemoglobin 9.4 g/dL (11.5-16.0); IMMATURE GRAN ABSOLUTE AUTO 0.01 K/mm3 (0.00-0.10); IMMATURE GRAN PERCENT AUTO 0 % (0-1); LYMPHOCYTES ABSOLUTE AUTO 1.41 K/mm3 (0.84-5.20); LYMPHOCYTES PERCENT AUTO 19 % (21-46); MONOCYTES ABSOLUTE AUTO 0.95 K/mm3 (0.16-1.47); MONOCYTES PERCENT AUTO 13 % (4-13); Mean Corpuscular HGB 31.3 pg (26.0-34.0); Mean Corpuscular HGB Conc 30.9 g/dL (31.5-36.5); Mean Corpuscular Volume 101 fL (80-100); Mean Platelet Volume 9.9 fL (9.1-12.4); NEUTROPHILS ABSOLUTE AUTO 5.15 K/mm3 (1.96-9.15); NEUTROPHILS PERCENT AUTO 68 % (41-73); Platelet Count 279 K/mm3 (150-400); RDW Coefficient Variation 14.6 % (11.7-14.2); RDW Standard Deviation 54.2 fL (35.1-46.3)
[2019-03-16 20:14] LABS: Alanine Aminotransfer (ALT/SGP 14 U/L (12-78); Albumin/Globulin Ratio 0.9 (0.8-1.8); Alk Phos 97 U/L (50-136); Anion Gap 5 mmol/L (6-16); Aspartate Aminotrans (AST/SGOT 21 U/L (12-37); Bilirubin, Total 0.4 mg/dL (0.1-1.0); Blood Urea Nitrogen 15 mg/dL (8-24); Bun/Creatinine Ratio 25.3 (12.0-20.0); CO2, Blood 25 mmol/L (21-32); Calcium, Blood 8.9 mg/dL (8.5-10.1); Chloride, Blood 111 mmol/L (98-108); Creatinine, Blood 0.59 mg/dL (0.40-1.00); Globulin, Blood 3.4 g/dL (2.2-4.0); Glomerular Filtration Rate >60 (60-); Glucose, Blood 87 mg/dL (70-99); Potassium, Blood 3.7 mmol/L (3.5-5.5); Sodium, Blood 141 mmol/L (136-145); Total Protein, Blood 6.4 g/dL (6.4-8.2); Troponin I <0.015 ng/mL (0.000-0.040)
[2019-03-16] MEDS ORDERED: LISI20 PO (20:39)
== END 2019-03-16 21:00 | disposition home or self-care (01) ==
LOC: ER 19:17
PROVIDERS: Emergency Medicine
DX: R42 Dizziness and giddiness (principal); I95.9 Hypotension, unspecified; J44.9 Chronic obstructive pulmonary disease, unspecified; I10 Essential (primary) hypertension; E03.9 Hypothyroidism, unspecified; Z86.73 Personal history of transient ischemic attack (TIA), and cerebral infarction without residual deficits; Z91.09 Other allergy status, other than to drugs and biological substances; Z87.891 Personal history of nicotine dependence
CPT/HCPCS: 36415; 80053; 84484; 85025; 93005; 93010; 96360; 99285-25; J7030

== ENCOUNTER 2020-07-13 19:11 | Emergency (ER) | payer MEDICARE, OTHER ==
[~2020-07-13] VITALS: Ht 162.6 cm; Wt 52.2 kg
[~2020-07-13 19:11] MED LIST changes: +LISI20 PO
[2020-07-13 19:46] LABS: BASOPHILS ABSOLUTE AUTO 0.03 K/mm3 (0.00-0.23); BASOPHILS PERCENT AUTO 1 % (0-2); EOSINOPHILS ABSOLUTE AUTO 0.14 K/mm3 (0.00-0.68); EOSINOPHILS PERCENT AUTO 2 % (0-6); Hematocrit 34.3 % (33.0-51.0); Hemoglobin 10.5 g/dL (11.5-16.0); IMMATURE GRAN ABSOLUTE AUTO 0.02 K/mm3 (0.00-0.10); IMMATURE GRAN PERCENT AUTO 0 % (0-1); LYMPHOCYTES ABSOLUTE AUTO 1.23 K/mm3 (0.84-5.20); LYMPHOCYTES PERCENT AUTO 20 % (21-46); MONOCYTES ABSOLUTE AUTO 0.53 K/mm3 (0.16-1.47); MONOCYTES PERCENT AUTO 9 % (4-13); Mean Corpuscular HGB Conc 30.6 g/dL (31.5-36.5); Mean Corpuscular Volume 105 fL (80-100); Mean Platelet Volume 9.1 fL (9.1-12.4); NEUTROPHILS ABSOLUTE AUTO 4.17 K/mm3 (1.96-9.15); NEUTROPHILS PERCENT AUTO 68 % (41-73); Platelet Count 252 K/mm3 (150-400); RDW Coefficient Variation 14.9 % (11.7-14.2); RDW Standard Deviation 57.5 fL (35.1-46.3); Red Blood Cell Count 3.28 M/mm3 (3.80-5.20); White Blood Cell Count 6.12 K/mm3 (4.00-11.30)
[2020-07-13 20:05] LABS: Source, Urine Clean Catch
[2020-07-13 20:08] LABS: Appearance, Urine Clear (Clear); Bilirubin, Urine Neg (Neg); Blood, Urine 1+ (Neg); Color, Urine Yellow (P-Yellow); Glucose Qualitative, Urine Neg (Neg); Ketones, Urine Neg (Neg); Leukocyte Esterase, Urine 3+ (Neg); Nitrite, Urine Neg (Neg); Protein, Urine 1+ (Neg); Urobilinogen, Urine NORM (Normal)
[2020-07-13 20:14] LABS: Bacteria Mod /hpf; Hyaline Casts 0-2 /lpf (0-2); Red Blood Cells, Urine 0-2 /hpf (0-2); Squamous Epithelial Cells Few /hpf (Few)
[2020-07-13 20:28] LABS: Alanine Aminotransfer (ALT/SGP 22 U/L (12-78); Albumin, Blood 3.4 g/dL (3.4-5.0); Albumin/Globulin Ratio 1.1 (0.8-1.8); Alk Phos 85 U/L (50-136); Anion Gap 1 mmol/L (6-16); Aspartate Aminotrans (AST/SGOT 28 U/L (12-37); Bilirubin, Total 0.3 mg/dL (0.1-1.0); Blood Urea Nitrogen 28 mg/dL (8-24); Bun/Creatinine Ratio 33.8 (12.0-20.0); CO2, Blood 28 mmol/L (21-32); Calcium, Blood 8.8 mg/dL (8.5-10.1); Chloride, Blood 114 mmol/L (98-108); Creatinine, Blood 0.83 mg/dL (0.40-1.00); Globulin, Blood 3.2 g/dL (2.2-4.0); Glomerular Filtration Rate >60 (60-); Glucose, Blood 99 mg/dL (70-99); Potassium, Blood 3.7 mmol/L (3.5-5.5); Sodium, Blood 143 mmol/L (136-145); Total Protein, Blood 6.6 g/dL (6.4-8.2); Troponin I <0.015 ng/mL (0.000-0.040)
[2020-07-13] MEDS ORDERED: CEFP200 PO (22:53)
== END 2020-07-13 23:35 | disposition home or self-care (01) ==
LOC: ER 19:11
PROVIDERS: Physician Assistant
DX: N39.0 Urinary tract infection, site not specified (principal); R41.0 Disorientation, unspecified; I10 Essential (primary) hypertension; E03.9 Hypothyroidism, unspecified; J44.9 Chronic obstructive pulmonary disease, unspecified; F17.210 Nicotine dependence, cigarettes, uncomplicated; Z79.899 Other long term (current) drug therapy; Z91.041 Radiographic dye allergy status; Z91.012 Allergy to eggs; Z86.73 Personal history of transient ischemic attack (TIA), and cerebral infarction without residual deficits
CPT/HCPCS: 36415; 71045; 80053; 81001; 84484; 85025; 87086; 93005; 93010; 96365; 99285-25; J0696

== ENCOUNTER 2020-10-26 20:45 | Inpatient (IN) | payer MEDICARE, OTHER ==
[~2020-10-26] VITALS: Ht 162.6 cm; Wt 64.1 kg
[~2020-10-26 20:45] MED LIST changes: +CEFP200 PO
[2020-10-26 22:00] LABS: BASOPHILS ABSOLUTE AUTO 0.01 K/mm3 (0.00-0.23); BASOPHILS PERCENT AUTO 0 % (0-2); EOSINOPHILS ABSOLUTE AUTO 0.03 K/mm3 (0.00-0.68); EOSINOPHILS PERCENT AUTO 0 % (0-6); Hematocrit 26.5 % (33.0-51.0); Hemoglobin 7.8 g/dL (11.5-16.0); IMMATURE GRAN ABSOLUTE AUTO 0.04 K/mm3 (0.00-0.10); IMMATURE GRAN PERCENT AUTO 0 % (0-1); LYMPHOCYTES ABSOLUTE AUTO 0.55 K/mm3 (0.84-5.20); LYMPHOCYTES PERCENT AUTO 5 % (21-46); MONOCYTES PERCENT AUTO 12 % (4-13); Mean Corpuscular HGB 28.3 pg (26.0-34.0); Mean Corpuscular HGB Conc 29.4 g/dL (31.5-36.5); Mean Corpuscular Volume 96 fL (80-100); Mean Platelet Volume 9.3 fL (9.1-12.4); NEUTROPHILS ABSOLUTE AUTO 9.25 K/mm3 (1.96-9.15); NEUTROPHILS PERCENT AUTO 83 % (41-73); Platelet Count 275 K/mm3 (150-400); RDW Coefficient Variation 16.1 % (11.7-14.2); RDW Standard Deviation 56.9 fL (35.1-46.3); Red Blood Cell Count 2.76 M/mm3 (3.80-5.20); White Blood Cell Count 11.18 K/mm3 (4.00-11.30)
[2020-10-26 22:22] LABS: Alanine Aminotransfer (ALT/SGP 26 U/L (12-78); Albumin, Blood 3.2 g/dL (3.4-5.0); Albumin/Globulin Ratio 0.9 (0.8-1.8); Alk Phos 108 U/L (50-136); Anion Gap 3 mmol/L (6-16); Aspartate Aminotrans (AST/SGOT 32 U/L (12-37); Bilirubin, Total 0.5 mg/dL (0.1-1.0); Blood Urea Nitrogen 29 mg/dL (8-24); CO2, Blood 26 mmol/L (21-32); Calcium, Blood 8.6 mg/dL (8.5-10.1); Chloride, Blood 116 mmol/L (98-108); Creatinine, Blood 0.78 mg/dL (0.40-1.00); Globulin, Blood 3.6 g/dL (2.2-4.0); Glomerular Filtration Rate >60 (60-); Glucose, Blood 126 mg/dL (70-99); Potassium, Blood 3.5 mmol/L (3.5-5.5); Sodium, Blood 145 mmol/L (136-145); Total Protein, Blood 6.8 g/dL (6.4-8.2); Troponin I <0.015 ng/mL (0.000-0.040)
[2020-10-26 23:24] LABS: Percent Saturation 5.3 % (15.0-50.0)
[2020-10-27 00:14] LABS: Source, Urine Clean Catch
[2020-10-27 00:24] LABS: Appearance, Urine Clear (Clear); Bilirubin, Urine Neg (Neg); Blood, Urine 1+ (Neg); Color, Urine Amber (P-Yellow); Glucose Qualitative, Urine Neg (Neg); Ketones, Urine Neg (Neg); Leukocyte Esterase, Urine 3+ (Neg); Nitrite, Urine Neg (Neg); Protein, Urine 2+ (Neg); Urobilinogen, Urine NORM (Normal)
[2020-10-27 00:34] LABS: Red Blood Cells, Urine 0-2 /hpf (0-2); White Blood Cells, Urine 50-100 /hpf (0-5)
[2020-10-27 00:35] LABS: Bacteria Many /hpf; Squamous Epithelial Cells Few /hpf (Few)
--- NOTE | 2020-10-27 01:20 | NUR ---
transfer report from Anum DIANA RN on 80 year old Female with recent increased WEAKNESS AND LOW H & H. UA positive rocephin in ER. CT of abd pelvis & CXR in ER. Await admission on OBS status.
[2020-10-27 05:16] LABS: BASOPHILS ABSOLUTE AUTO 0.03 K/mm3 (0.00-0.23); BASOPHILS PERCENT AUTO 0 % (0-2); EOSINOPHILS PERCENT AUTO 0 % (0-6); Hematocrit 24.4 % (33.0-51.0); Hemoglobin 7.3 g/dL (11.5-16.0); IMMATURE GRAN ABSOLUTE AUTO 0.03 K/mm3 (0.00-0.10); IMMATURE GRAN PERCENT AUTO 0 % (0-1); LYMPHOCYTES ABSOLUTE AUTO 0.53 K/mm3 (0.84-5.20); LYMPHOCYTES PERCENT AUTO 4 % (21-46); MONOCYTES ABSOLUTE AUTO 1.32 K/mm3 (0.16-1.47); MONOCYTES PERCENT AUTO 11 % (4-13); Mean Corpuscular HGB 28.4 pg (26.0-34.0); Mean Corpuscular HGB Conc 29.9 g/dL (31.5-36.5); Mean Corpuscular Volume 95 fL (80-100); Mean Platelet Volume 9.6 fL (9.1-12.4); NEUTROPHILS ABSOLUTE AUTO 10.15 K/mm3 (1.96-9.15); NEUTROPHILS PERCENT AUTO 84 % (41-73); Platelet Count 257 K/mm3 (150-400); RDW Coefficient Variation 16.1 % (11.7-14.2); RDW Standard Deviation 55.6 fL (35.1-46.3); Red Blood Cell Count 2.57 M/mm3 (3.80-5.20); White Blood Cell Count 12.06 K/mm3 (4.00-11.30)
[2020-10-27 05:57] LABS: Alanine Aminotransfer (ALT/SGP 23 U/L (12-78); Albumin, Blood 2.8 g/dL (3.4-5.0); Albumin/Globulin Ratio 0.9 (0.8-1.8); Alk Phos 105 U/L (50-136); Anion Gap 5 mmol/L (6-16); Aspartate Aminotrans (AST/SGOT 28 U/L (12-37); Bilirubin, Total 0.4 mg/dL (0.1-1.0); Blood Urea Nitrogen 28 mg/dL (8-24); Bun/Creatinine Ratio 36.9 (12.0-20.0); CO2, Blood 22 mmol/L (21-32); Calcium, Blood 8.1 mg/dL (8.5-10.1); Chloride, Blood 119 mmol/L (98-108); Creatinine, Blood 0.76 mg/dL (0.40-1.00); Globulin, Blood 3.2 g/dL (2.2-4.0); Glomerular Filtration Rate >60 (60-); Glucose, Blood 101 mg/dL (70-99); Potassium, Blood 3.5 mmol/L (3.5-5.5); Sodium, Blood 146 mmol/L (136-145)
[2020-10-27 14:06] LABS: Stool Occult Blood Guaiac 1 Pos (Neg)
[2020-10-27 16:07] LABS: Hematocrit 26.2 % (33.0-51.0); Hemoglobin 7.7 g/dL (11.5-16.0)
--- NOTE | 2020-10-27 18:46 | NUR ---
SHIFT SUMMARY. A&OX2, PLEASANT AND COOPERATIVE WITH CARE, IMPULSIVE, BED/CHAIR ALARM UTILIZED FOR SAFETY. PT DENIES PAIN, SOB, N/V. IV IRON INFUSED. MAINTENCE FLUIDS STARTED. PT DENIES PAIN, SOB, N/V. DR. QUINTANA REPORTED THAT DR. ZIMMERMAN WILL SCOPE PT EITHER OR MONDAY. PT HAD POSITIVE GUIAC TODAY, STOOL WAS BROWN AND FORMED. MIRALAX GIVEN THIS EVENING. SON IN TO VISIT THIS AFTERNOON, SPOKE WITH DR. QUINTANA AND IS AGREEABLE TO PLAN OF CARE. NO OTHER CHANGES OR CONCERNS.
--- NOTE | 2020-10-27 20:26 | NUR ---
ASSUMPTION OF CARE. AOX2 HAS TROUBLE WITH DATE AND TIME. FOLLOWS DIRECTION WELL. DENIES ANY PAIN OR DISCOMFORT. LUNG SOUNDS ARE DIMINISHED T/O, OCCATIONAL COUGH. ON 3 LITERS NC SATS >90%. DENIES SOB OR CHEST PAIN. HR SINUS DARIANA PER FOOD COUNSELOR. APPETITE GOOD. PUBLICATIONS PRODUCTION SUPERVISOR DID BED AND GOWN CHANGE DUE TO DINNER MESS. DENIES ANY NEEDS AT THIS TIME. BED ALARM IS ON, CALL LIGHT IS IN REACH.
[2020-10-28 04:27] LABS: BASOPHILS ABSOLUTE AUTO 0.02 K/mm3 (0.00-0.23); BASOPHILS PERCENT AUTO 0 % (0-2); EOSINOPHILS ABSOLUTE AUTO 0.12 K/mm3 (0.00-0.68); EOSINOPHILS PERCENT AUTO 1 % (0-6); Hematocrit 24.9 % (33.0-51.0); Hemoglobin 7.4 g/dL (11.5-16.0); IMMATURE GRAN ABSOLUTE AUTO 0.07 K/mm3 (0.00-0.10); IMMATURE GRAN PERCENT AUTO 1 % (0-1); LYMPHOCYTES PERCENT AUTO 7 % (21-46); MONOCYTES ABSOLUTE AUTO 1.32 K/mm3 (0.16-1.47); MONOCYTES PERCENT AUTO 13 % (4-13); Mean Corpuscular HGB 28.9 pg (26.0-34.0); Mean Corpuscular HGB Conc 29.7 g/dL (31.5-36.5); Mean Corpuscular Volume 97 fL (80-100); Mean Platelet Volume 9.5 fL (9.1-12.4); NEUTROPHILS ABSOLUTE AUTO 8.27 K/mm3 (1.96-9.15); NEUTROPHILS PERCENT AUTO 79 % (41-73); Platelet Count 243 K/mm3 (150-400); RDW Coefficient Variation 16.3 % (11.7-14.2); RDW Standard Deviation 57.8 fL (35.1-46.3); Red Blood Cell Count 2.56 M/mm3 (3.80-5.20)
[2020-10-28 04:43] LABS: Anion Gap 3 mmol/L (6-16); Blood Urea Nitrogen 25 mg/dL (8-24); Bun/Creatinine Ratio 34.3 (12.0-20.0); CO2, Blood 25 mmol/L (21-32); Calcium, Blood 8.4 mg/dL (8.5-10.1); Chloride, Blood 116 mmol/L (98-108); Creatinine, Blood 0.73 mg/dL (0.40-1.00); Glomerular Filtration Rate >60 (60-); Glucose, Blood 89 mg/dL (70-99); Magnesium, Blood 2.3 mg/dL (1.6-2.4); Potassium, Blood 4.1 mmol/L (3.5-5.5); Sodium, Blood 144 mmol/L (136-145)
--- NOTE | 2020-10-28 05:42 | NUR ---
SHIFT SUMMARY: AOX2, FORGETFUL, AND IMPULSIVE AT TIMES. BED ALARM HAS REMAINED ON. LUNG SOUNDS ARE DIMINISHED, NO COUGH NOTED. SATS IN THE 90'S ON 3 LITERS. ABLE TO GET TO BSC WITH SOME ASSIST, SOB ON EXERTION BUT RECOVERY IS SHORT. IVF COMPLETED. SL. NO PAIN. VS WNL, AFEBRILE. TELE SINUS DARIANA AT TIMES. NO BM THIS SHIFT. HH RUNNING 7.4/24.9 THIS AM. PLAN: POSSIBLE DC AND FOLLOWUP WITH GI FOR A COLONOSCOPY, CONTINUE ANTIBOTIC TX AND HOME OXYGEN. BED ALARM ON AND CALL LIGHT IS IN REACH.
[2020-10-28] MEDS ORDERED: TIOT18 INH (16:27)
--- NOTE | 2020-10-28 16:59 | NUR ---
SHIFT SUMMARY- PT A/OX3, ANSWERS QUESTIONS APROPRIATELY. PT DROWSY AND FORGETFUL AT TIMES. PT DENIES ANY COMPLAINTS T/O THE DAY. LS DIMINISHED, ON 2.5L N/C WHICH IS PT BASELINE. TELE SR AT 81. RIGHT BKA, PT 1 ASSIST UP TO BSC. NO BM TODAY BUT COLACE AND MIRALAX GIVEN. IV IRON INFUSED, DR ZIMMERMAN TO SEE PT THIS EVENING. NO OTHER ACUTE CHANGES THIS SHIFT.
--- NOTE | 2020-10-28 17:17 | NUR ---
DR ZIMMERMAN IN TO SEE PT.
--- NOTE | 2020-10-29 04:11 | NUR ---
SHIFT SUMMARY ASSUMED CARE OF PT AT 1900. PT IS A/OX4. HEART SOUNDS REUGLAR, TELE SHOWS SINUS. LUNG SOUNDS HAVE CRACKLES AT BASES. PT RECEIVED 1 UNIT PRBC, PT PERFUSION IMPROVED EVIDENCE BY WOARMED FINGERS AND HER SKIN NOT BEING PALE. PT IS A 1P ASSIST TO BSC FWW. PT STILL GETS VERY SOB WITH ACTIVITY, EVEN AFTER RECEIVING BLOOD. PT HAD LARGE HARD BM THIS SHIFT. PT IS BOTH CONTINENT AND INCONTIENT. PT WAS ABLE TO GET SOME SLEEP TONIGHT. CALL LIGHT IN REACH, BED IN LOWEST POSTION.
--- NOTE | 2020-10-29 10:27 | NUR ---
GOLYTELY- PT STARTED GOLYTELY THIS AM, PT WAS HAVING DIFFICULTY HOLDING THE CUP AND WAS NEEDING ASSISTANCE. STAFF WAS IN MULTIPLE TIMES THIS MORNING BUT PT WOULD ONLY TAKE SIPS AT A TIME. SPOKE WITH SON WHO CAME IN TO ASSIST AND SEE IF HE CAN ENCOURAGE PT TO DRINK. PT STARTED VOMITTING. CALL OUT TO DR ZIMMERMAN, PER DR ZIMMERMAN STOP DRINKING GOLYTELY. WILL GIVE FLEET ENEMA NOW AND ANOTHER IN 1 HOUR. AND WILL COMPLETE A FLEX SIG TODAY.
[2020-10-29 11:51] LABS: Influenza A, PCR NEGATIVE (NEGATIVE); Influenza B, PCR NEGATIVE (NEGATIVE); Resp Syncytial Virus, PCR NEGATIVE (NEGATIVE); SARS-Cov-2 (COVID-19) PCR, MMC NEGATIVE (NEGATIVE)
[2020-10-29 12:13] LABS: BASOPHILS ABSOLUTE AUTO 0.01 K/mm3 (0.00-0.23); BASOPHILS PERCENT AUTO 0 % (0-2); EOSINOPHILS ABSOLUTE AUTO 0.02 K/mm3 (0.00-0.68); EOSINOPHILS PERCENT AUTO 0 % (0-6); Hematocrit 29.4 % (33.0-51.0); Hemoglobin 8.7 g/dL (11.5-16.0); IMMATURE GRAN ABSOLUTE AUTO 0.09 K/mm3 (0.00-0.10); IMMATURE GRAN PERCENT AUTO 2 % (0-1); LYMPHOCYTES ABSOLUTE AUTO 0.77 K/mm3 (0.84-5.20); LYMPHOCYTES PERCENT AUTO 14 % (21-46); MONOCYTES ABSOLUTE AUTO 0.65 K/mm3 (0.16-1.47); MONOCYTES PERCENT AUTO 12 % (4-13); Mean Corpuscular HGB 28.6 pg (26.0-34.0); Mean Corpuscular HGB Conc 29.6 g/dL (31.5-36.5); Mean Corpuscular Volume 97 fL (80-100); Mean Platelet Volume 9.3 fL (9.1-12.4); NEUTROPHILS ABSOLUTE AUTO 3.96 K/mm3 (1.96-9.15); NEUTROPHILS PERCENT AUTO 72 % (41-73); Platelet Count 281 K/mm3 (150-400); RDW Coefficient Variation 16.4 % (11.7-14.2); RDW Standard Deviation 58.3 fL (35.1-46.3); Red Blood Cell Count 3.04 M/mm3 (3.80-5.20)
[2020-10-29 12:26] LABS: International Normalized Ratio 1.09; Prothrombin Time Results 11.6 Sec (9.7-11.5)
--- NOTE | 2020-10-29 12:39 | NUR ---
PT TO DAY SURGERY. [address] PER [address] ZIMMERMAN, WITH MEDIUM BROWN STOOL RESULT ONLY. SON REPORTED EMESIS HAD BLACK FLEX IN IT, DAY SURGERY NURSE NOTIFIED TO NOTIFY DR ZIMMERMAN.
--- NOTE | 2020-10-29 12:45 | NUR ---
10/29/20 1245 Lupis Ross History, Chart, Medications and Allergies reviewed before start of procedure. PLAN FOR UNSEDATED PROCEDURE PER DR. ZIMMERMAN
--- NOTE | 2020-10-29 12:57 | NUR ---
FLOOR RN FORD Damon states colon prep results YELLOW. JUST FINSISHED PREP IN ROOM WHEN RN ARRIVED TO EXPEDITION SUPERVISOR PT. History, Chart, Medications and Allergies reviewed before start of procedure.Lungs clear T/O to Auscultation. PT OCCASIONALLY CONFUSED.
--- NOTE | 2020-10-29 14:44 | NUR ---
PT BACK FROM DAY SURGERY. PT SITTING UP IN BED ASKING FOR SOMETHING TO DRINK, PT DENIES ANY COMPLAINTS. DR QUINTANA IN TO SEE PT AND DISCUSS DISCHARGE. IRON INFUSION TO BE GIVEN PROIR TO DISCHARGE.
[2020-10-29] MEDS ORDERED: LISI20 PO (16:01)
[2020-10-29] MEDS ORDERED: DOCU100 PO (16:01)
[2020-10-29] MEDS ORDERED: MIRALAX17 GM PO (16:02)
[2020-10-29] MEDS ORDERED: SENN187 PO (16:02)
[2020-10-29] MEDS ORDERED: VISBIOME 112.51 EACH PO (16:02)
[2020-10-29] MEDS ORDERED: FERROUS GLUCON324 M7 PO (16:03)
--- NOTE | 2020-10-29 17:18 | NUR ---
DISCHARGE INSTRUCTIONS REVIEWED WITH PT AND SON. IV DC'D INTACT. RX FAXED TO [facility]. [facility] TO FOLLOW UP. APPT MADE WITH PCP. PT CONT TO BE SOB WITH EXERTION BUT IMPROVED FROM YESTERDAY WELL FINE MOTOR SKILLS HAVE IMPROVED SINCE YESTERDAY. PT DC'D HOME WITH SON, ESCORTED OUT VIA W/C AT 1720.
== END 2020-10-29 17:15 | disposition home health service (06) | DRG 812 ==
LOC: ER 20:45 → ERHOLD 20:46 → MEDS 20:46
PROVIDERS: Emergency Medicine; Internal Medicine; Internal Medicine Gastroenterology; Physician Assistant; ADMIT Internal Medicine
PROC: 30233N1 Transfusion of Nonautologous Red Blood Cells into Peripheral Vein, Percutaneous Approach (ICD-10-PCS; principal; 2020-10-29 12:45)
DX: D50.9 Iron deficiency anemia, unspecified (principal); N39.0 Urinary tract infection, site not specified; J96.11 Chronic respiratory failure with hypoxia; Z20.822 Contact with and (suspected) exposure to COVID-19; I10 Essential (primary) hypertension; Z66 Do not resuscitate; E03.9 Hypothyroidism, unspecified; K59.09 Other constipation; J44.9 Chronic obstructive pulmonary disease, unspecified; F17.210 Nicotine dependence, cigarettes, uncomplicated; Z99.81 Dependence on supplemental oxygen; Z86.73 Personal history of transient ischemic attack (TIA), and cerebral infarction without residual deficits; Z89.511 Acquired absence of right leg below knee; Z90.49 Acquired absence of other specified parts of digestive tract; Z90.710 Acquired absence of both cervix and uterus; Z90.89 Acquired absence of other organs; Z98.890 Other specified postprocedural states; Z88.8 Allergy status to other drugs, medicaments and biological substances; Z79.899 Other long term (current) drug therapy
CPT/HCPCS: 0241U; 36415; 36430; 71045; 71046; 74176; 80048; 80053; 81001; 82272; 83540; 83550; 83735; 83880; 84484; 85014; 85018; 85025; 85610; 86850; 86900; 86901; 86923; 87077; 87086; 87186; 93005; 93010; 94640; 94760; 96365; 96366; 96367; 96376; 97110; 97116; 97162; 99285-25; A9270; G0378; J0696; J2916; J3480; J7050; J7120; P9016

== ENCOUNTER 2021-01-22 12:54 | Day surgery (SDC) | payer MEDICARE, OTHER ==
[~2021-01-22] VITALS: Ht 162.6 cm; Wt 55.4 kg
[~2021-01-22 12:54] MED LIST changes: +DOCU100 PO; +FERROUS GLUCON324 M7 PO; +MIRALAX17 GM PO; +SENN187 PO; +VISBIOME 112.51 EACH PO
--- NOTE | 2021-01-22 13:58 | NUR ---
01/22/21 1358 Hayes dong FIRST IV IN RIGHT HAND MISSED SECOND IV IN RIGHT ARM MISSED THIRD IV IN LEFT HAND MISSED
== END 2021-01-22 15:11 | disposition home or self-care (01) ==
LOC: ORSCSDS 12:54
PROVIDERS: Internal Medicine Gastroenterology
PROC: 0D568ZZ Destruction of Stomach, Via Natural or Artificial Opening Endoscopic (ICD-10-PCS; principal; 2021-01-22 15:00)
PROC: 0DB78ZX Excision of Stomach, Pylorus, Via Natural or Artificial Opening Endoscopic, Diagnostic (ICD-10-PCS; principal; 2021-01-22 15:00)
DX: D50.9 Iron deficiency anemia, unspecified (principal); K44.9 Diaphragmatic hernia without obstruction or gangrene; K31.819 Angiodysplasia of stomach and duodenum without bleeding; I10 Essential (primary) hypertension; E03.9 Hypothyroidism, unspecified; J44.9 Chronic obstructive pulmonary disease, unspecified; Z87.891 Personal history of nicotine dependence; Z79.899 Other long term (current) drug therapy; Z99.81 Dependence on supplemental oxygen
CPT/HCPCS: 88305; 88342; J2704; J7120

== ENCOUNTER 2021-03-17 11:18 | Day surgery (SDC) | payer MEDICARE, OTHER ==
[~2021-03-17] VITALS: Ht 162.6 cm; Wt 55.4 kg
[2021-03-17] MEDS ORDERED: AMLO10 PO (11:23)
--- NOTE | 2021-03-17 13:08 | NUR ---
03/17/21 1308 Carol Wall UPPER SCOPE USED FOR COLONOSCPY DUE TO TIGHT, TWISTY COLON GREEN/WHITE SCOPE OUT AT 1304 AND RESTART WITH 1307 WITH PURPLE UPPER SCOPE
== END 2021-03-17 14:00 | disposition home or self-care (01) ==
LOC: ORSCSDS 11:18
PROVIDERS: Internal Medicine Gastroenterology
PROC: 0DJD8ZZ Inspection of Lower Intestinal Tract, Via Natural or Artificial Opening Endoscopic (ICD-10-PCS; principal; 2021-03-17 12:30)
DX: D50.9 Iron deficiency anemia, unspecified (principal); Z83.71 Family history of colonic polyps; K57.30 Diverticulosis of large intestine without perforation or abscess without bleeding; K64.8 Other hemorrhoids; I10 Essential (primary) hypertension; K21.9 Gastro-esophageal reflux disease without esophagitis; Z87.891 Personal history of nicotine dependence; Z79.899 Other long term (current) drug therapy
CPT/HCPCS: J2704; J7120

== ENCOUNTER 2021-04-13 15:14 | Emergency (ER) | payer MEDICARE, OTHER ==
[~2021-04-13] VITALS: Ht 162.6 cm; Wt 52.2 kg
[2021-04-13 15:43] LABS: BASOPHILS ABSOLUTE AUTO 0.02 K/mm3 (0.00-0.23); BASOPHILS PERCENT AUTO 0 % (0-2); EOSINOPHILS ABSOLUTE AUTO 0.08 K/mm3 (0.00-0.68); EOSINOPHILS PERCENT AUTO 1 % (0-6); Hematocrit 33.8 % (33.0-51.0); Hemoglobin 10.5 g/dL (11.5-16.0); IMMATURE GRAN ABSOLUTE AUTO 0.02 K/mm3 (0.00-0.10); IMMATURE GRAN PERCENT AUTO 0 % (0-1); LYMPHOCYTES ABSOLUTE AUTO 0.97 K/mm3 (0.84-5.20); LYMPHOCYTES PERCENT AUTO 16 % (21-46); MONOCYTES ABSOLUTE AUTO 0.46 K/mm3 (0.16-1.47); MONOCYTES PERCENT AUTO 7 % (4-13); Mean Corpuscular HGB 32.1 pg (26.0-34.0); Mean Corpuscular HGB Conc 31.1 g/dL (31.5-36.5); Mean Corpuscular Volume 103 fL (80-100); Mean Platelet Volume 9.4 fL (9.1-12.4); NEUTROPHILS ABSOLUTE AUTO 4.67 K/mm3 (1.96-9.15); NEUTROPHILS PERCENT AUTO 75 % (41-73); Platelet Count 283 K/mm3 (150-400); RDW Coefficient Variation 15.9 % (11.7-14.2); RDW Standard Deviation 60.4 fL (35.1-46.3); Red Blood Cell Count 3.27 M/mm3 (3.80-5.20); White Blood Cell Count 6.22 K/mm3 (4.00-11.30)
[2021-04-13 16:00] LABS: Alanine Aminotransfer (ALT/SGP 24 U/L (12-78); Albumin, Blood 3.7 g/dL (3.4-5.0); Alk Phos 97 U/L (50-136); Anion Gap 4 mmol/L (6-16); Aspartate Aminotrans (AST/SGOT 31 U/L (12-37); Bilirubin, Total 0.6 mg/dL (0.1-1.0); Blood Urea Nitrogen 34 mg/dL (8-24); Bun/Creatinine Ratio 31.5 (12.0-20.0); CO2, Blood 27 mmol/L (21-32); Calcium, Blood 7.7 mg/dL (8.5-10.1); Chloride, Blood 112 mmol/L (98-108); Creatinine, Blood 1.08 mg/dL (0.40-1.00); Globulin, Blood 3.6 g/dL (2.2-4.0); Glomerular Filtration Rate 49 (60-); Glucose, Blood 137 mg/dL (70-99); Potassium, Blood 3.8 mmol/L (3.5-5.5); Sodium, Blood 143 mmol/L (136-145); Total Protein, Blood 7.3 g/dL (6.4-8.2); Troponin I <0.015 ng/mL (0.000-0.040)
[2021-04-13 18:37] LABS: SARS-Cov-2 (COVID-19) PCR, MMC NEGATIVE (NEGATIVE)
[2021-04-13 19:38] LABS: Source, Urine Catheter
[2021-04-13 19:45] LABS: Appearance, Urine Cloudy (Clear); Bilirubin, Urine Neg (Neg); Blood, Urine 1+ (Neg); Color, Urine Yellow (P-Yellow); Glucose Qualitative, Urine Neg (Neg); Ketones, Urine Neg (Neg); Leukocyte Esterase, Urine 3+ (Neg); Nitrite, Urine Neg (Neg); Protein, Urine 2+ (Neg); Urobilinogen, Urine NORM (Normal)
[2021-04-13 20:02] LABS: Bacteria Mod /hpf; Red Blood Cells, Urine 0-2 /hpf (0-2); Squamous Epithelial Cells Few /hpf (Few); White Blood Cells, Urine TNTC /hpf (0-5)
[2021-04-13 20:03] LABS: Hyaline Casts 0-2 /lpf (0-2)
[2021-04-13] MEDS ORDERED: CEFD300 PO (20:49)
== END 2021-04-13 21:20 | disposition home or self-care (01) ==
LOC: ER 15:14
PROVIDERS: Emergency Medicine; Physician Assistant
DX: N39.0 Urinary tract infection, site not specified (principal); I10 Essential (primary) hypertension; J44.9 Chronic obstructive pulmonary disease, unspecified; E03.9 Hypothyroidism, unspecified; Z20.822 Contact with and (suspected) exposure to COVID-19; Z91.041 Radiographic dye allergy status; Z91.012 Allergy to eggs; Z79.899 Other long term (current) drug therapy; Z99.81 Dependence on supplemental oxygen; Z86.73 Personal history of transient ischemic attack (TIA), and cerebral infarction without residual deficits
CPT/HCPCS: 36415; 70450; 71045; 80053; 81001; 83880; 84484; 85025; 87077; 87086; 87186; 93005; 93010; 96372-59; 99285-25; J0696; J7030; P9612; U0004

== ENCOUNTER 2021-05-31 18:07 | Emergency (ER) | payer MEDICARE, OTHER ==
[~2021-05-31] VITALS: Ht 162.6 cm; Wt 65.8 kg
[~2021-05-31 18:07] MED LIST changes: +CEFD300 PO
[2021-05-31 18:51] LABS: BASOPHILS ABSOLUTE AUTO 0.01 K/mm3 (0.00-0.23); BASOPHILS PERCENT AUTO 0 % (0-2); EOSINOPHILS ABSOLUTE AUTO 0.03 K/mm3 (0.00-0.68); EOSINOPHILS PERCENT AUTO 1 % (0-6); Hemoglobin 8.7 g/dL (11.5-16.0); IMMATURE GRAN ABSOLUTE AUTO 0.02 K/mm3 (0.00-0.10); IMMATURE GRAN PERCENT AUTO 0 % (0-1); LYMPHOCYTES PERCENT AUTO 15 % (21-46); MONOCYTES ABSOLUTE AUTO 0.47 K/mm3 (0.16-1.47); MONOCYTES PERCENT AUTO 10 % (4-13); Mean Corpuscular HGB 31.9 pg (26.0-34.0); Mean Corpuscular HGB Conc 31.1 g/dL (31.5-36.5); Mean Corpuscular Volume 103 fL (80-100); Mean Platelet Volume 9.5 fL (9.1-12.4); NEUTROPHILS ABSOLUTE AUTO 3.39 K/mm3 (1.96-9.15); NEUTROPHILS PERCENT AUTO 73 % (41-73); Platelet Count 276 K/mm3 (150-400); RDW Coefficient Variation 14.3 % (11.7-14.2); RDW Standard Deviation 52.9 fL (35.1-46.3); Red Blood Cell Count 2.73 M/mm3 (3.80-5.20); White Blood Cell Count 4.62 K/mm3 (4.00-11.30)
[2021-05-31 19:37] LABS: Alanine Aminotransfer (ALT/SGP 21 U/L (12-78); Albumin, Blood 3.1 g/dL (3.4-5.0); Albumin/Globulin Ratio 0.8 (0.8-1.8); Alk Phos 89 U/L (50-136); Anion Gap 3 mmol/L (6-16); Aspartate Aminotrans (AST/SGOT 28 U/L (12-37); Bilirubin, Total 0.5 mg/dL (0.1-1.0); Blood Urea Nitrogen 20 mg/dL (8-24); Bun/Creatinine Ratio 24.2 (12.0-20.0); CO2, Blood 23 mmol/L (21-32); Calcium, Blood 8.4 mg/dL (8.5-10.1); Chloride, Blood 119 mmol/L (98-108); Creatinine, Blood 0.83 mg/dL (0.40-1.00); Globulin, Blood 3.8 g/dL (2.2-4.0); Glomerular Filtration Rate >60 (60-); Glucose, Blood 130 mg/dL (70-99); Potassium, Blood 3.7 mmol/L (3.5-5.5); Sodium, Blood 145 mmol/L (136-145); Total Protein, Blood 6.9 g/dL (6.4-8.2)
[2021-05-31 20:14] LABS: Source, Urine Voided
[2021-05-31 20:16] LABS: Bilirubin, Urine Neg (Neg); Blood, Urine 1+ (Neg); Glucose Qualitative, Urine Neg (Neg); Ketones, Urine 1+ (Neg); Leukocyte Esterase, Urine Neg (Neg); Nitrite, Urine Neg (Neg); Protein, Urine 1+ (Neg); Urobilinogen, Urine NORM (Normal)
[2021-05-31 20:25] LABS: Appearance, Urine Clear (Clear); Color, Urine Yellow (P-Yellow)
[2021-05-31 20:26] LABS: Amorphous Light (0-Heavy); Bacteria Few /hpf; Hyaline Casts 0-2 /lpf (0-2); Mucus Light (0-Heavy); Red Blood Cells, Urine 0-2 /hpf (0-2); Squamous Epithelial Cells Few /hpf (Few); White Blood Cells, Urine 0-2 /hpf (0-5)
== END 2021-05-31 21:50 | disposition home or self-care (01) ==
LOC: ER 18:07
PROVIDERS: Emergency Medicine; Physician Assistant
DX: R41.82 Altered mental status, unspecified (principal); Z88.8 Allergy status to other drugs, medicaments and biological substances; Z91.012 Allergy to eggs; Z79.899 Other long term (current) drug therapy; J44.9 Chronic obstructive pulmonary disease, unspecified; I10 Essential (primary) hypertension; E03.9 Hypothyroidism, unspecified; Z86.73 Personal history of transient ischemic attack (TIA), and cerebral infarction without residual deficits; Z87.891 Personal history of nicotine dependence
CPT/HCPCS: 36415; 71045; 80053; 81001; 85025; 93005; 93010; 99285-25; J7030

== ENCOUNTER 2021-06-30 15:46 | Emergency (ER) | payer MEDICARE, OTHER ==
[~2021-06-30] VITALS: Ht 162.6 cm; Wt 52.2 kg
[2021-06-30 16:23] LABS: BASOPHILS ABSOLUTE AUTO 0.02 K/mm3 (0.00-0.23); BASOPHILS PERCENT AUTO 0 % (0-2); EOSINOPHILS PERCENT AUTO 0 % (0-6); Hematocrit 29.4 % (33.0-51.0); Hemoglobin 9.3 g/dL (11.5-16.0); IMMATURE GRAN ABSOLUTE AUTO 0.05 K/mm3 (0.00-0.10); IMMATURE GRAN PERCENT AUTO 1 % (0-1); LYMPHOCYTES ABSOLUTE AUTO 0.42 K/mm3 (0.84-5.20); LYMPHOCYTES PERCENT AUTO 4 % (21-46); MONOCYTES ABSOLUTE AUTO 0.24 K/mm3 (0.16-1.47); MONOCYTES PERCENT AUTO 3 % (4-13); Mean Corpuscular HGB 32.6 pg (26.0-34.0); Mean Corpuscular HGB Conc 31.6 g/dL (31.5-36.5); Mean Corpuscular Volume 103 fL (80-100); Mean Platelet Volume 9.2 fL (9.1-12.4); NEUTROPHILS ABSOLUTE AUTO 8.85 K/mm3 (1.96-9.15); NEUTROPHILS PERCENT AUTO 92 % (41-73); Platelet Count 267 K/mm3 (150-400); RDW Coefficient Variation 15.5 % (11.7-14.2); RDW Standard Deviation 58.6 fL (35.1-46.3); Red Blood Cell Count 2.85 M/mm3 (3.80-5.20); White Blood Cell Count 9.58 K/mm3 (4.00-11.30)
[2021-06-30 16:53] LABS: Alanine Aminotransfer (ALT/SGP 21 U/L (12-78); Albumin, Blood 3.3 g/dL (3.4-5.0); Albumin/Globulin Ratio 0.9 (0.8-1.8); Alk Phos 110 U/L (50-136); Anion Gap 3 mmol/L (6-16); Aspartate Aminotrans (AST/SGOT 30 U/L (12-37); Bilirubin, Total 0.4 mg/dL (0.1-1.0); Blood Urea Nitrogen 27 mg/dL (8-24); Bun/Creatinine Ratio 34.4 (12.0-20.0); CO2, Blood 18 mmol/L (21-32); Calcium, Blood 8.4 mg/dL (8.5-10.1); Chloride, Blood 119 mmol/L (98-108); Creatinine, Blood 0.79 mg/dL (0.40-1.00); Globulin, Blood 3.7 g/dL (2.2-4.0); Glomerular Filtration Rate >60 (60-); Glucose, Blood 165 mg/dL (70-99); Potassium, Blood 3.4 mmol/L (3.5-5.5); Sodium, Blood 140 mmol/L (136-145)
[2021-06-30] MEDS ORDERED: Ventolin5 MG/1 ML PO (17:48)
[2021-06-30] MEDS ORDERED: ZESTRIL40 M1 PO (17:48)
[2021-06-30 18:38] LABS: Troponin I <0.015 ng/mL (0.000-0.040)
[2021-06-30 18:40] LABS: Thyroid Stimulating Hormone 0.011 uIU/mL (0.360-4.800)
[2021-06-30 20:13] LABS: Source, Urine Catheter
[2021-06-30 20:15] LABS: Appearance, Urine Clear (Clear); Bilirubin, Urine Neg (Neg); Blood, Urine 3+ (Neg); Color, Urine Yellow (P-Yellow); Glucose Qualitative, Urine Neg (Neg); Ketones, Urine 3+ (Neg); Leukocyte Esterase, Urine 2+ (Neg); Nitrite, Urine Pos (Neg); Protein, Urine 2+ (Neg); Specific Gravity, Urine 1.015 (1.003-1.022); Urobilinogen, Urine NORM (Normal)
[2021-06-30 20:28] LABS: Bacteria Mod /hpf; Red Blood Cells, Urine 0-2 /hpf (0-2); Squamous Epithelial Cells Not Seen /hpf (Few); White Blood Cells, Urine TNTC /hpf (0-5)
[2021-06-30] MEDS ORDERED: CEPH500 PO (21:09)
== END 2021-06-30 21:50 | disposition home or self-care (01) ==
LOC: ER 15:46
PROVIDERS: Emergency Medicine; Physician Assistant
DX: N39.0 Urinary tract infection, site not specified (principal); J44.9 Chronic obstructive pulmonary disease, unspecified; I10 Essential (primary) hypertension; E03.9 Hypothyroidism, unspecified; Z91.041 Radiographic dye allergy status; Z91.012 Allergy to eggs; Z79.899 Other long term (current) drug therapy; Z99.81 Dependence on supplemental oxygen; Z86.73 Personal history of transient ischemic attack (TIA), and cerebral infarction without residual deficits; Z87.891 Personal history of nicotine dependence
CPT/HCPCS: 36415; 71045; 80053; 81001; 83880; 84443; 84484; 85025; 87077; 87086; 87186; 93005; 93010; 96365; 99285-25; J0696

== ENCOUNTER 2021-07-01 16:00 | Emergency (ER) | payer MEDICARE, OTHER ==
[~2021-07-01] VITALS: Ht 162.6 cm; Wt 52.2 kg
[~2021-07-01 16:00] MED LIST changes: +CEPH500 PO; +Ventolin5 MG/1 ML PO; +ZESTRIL40 M1 PO
[2021-07-01 17:14] LABS: BASOPHILS ABSOLUTE AUTO 0.01 K/mm3 (0.00-0.23); BASOPHILS PERCENT AUTO 0 % (0-2); EOSINOPHILS PERCENT AUTO 0 % (0-6); Hematocrit 25.1 % (33.0-51.0); IMMATURE GRAN ABSOLUTE AUTO 0.05 K/mm3 (0.00-0.10); IMMATURE GRAN PERCENT AUTO 0 % (0-1); LYMPHOCYTES ABSOLUTE AUTO 0.56 K/mm3 (0.84-5.20); LYMPHOCYTES PERCENT AUTO 4 % (21-46); MONOCYTES ABSOLUTE AUTO 0.49 K/mm3 (0.16-1.47); MONOCYTES PERCENT AUTO 4 % (4-13); Mean Corpuscular HGB 32.7 pg (26.0-34.0); Mean Corpuscular HGB Conc 31.9 g/dL (31.5-36.5); Mean Corpuscular Volume 102 fL (80-100); NEUTROPHILS ABSOLUTE AUTO 12.22 K/mm3 (1.96-9.15); NEUTROPHILS PERCENT AUTO 92 % (41-73); Platelet Count 245 K/mm3 (150-400); RDW Coefficient Variation 16.3 % (11.7-14.2); RDW Standard Deviation 60.9 fL (35.1-46.3); Red Blood Cell Count 2.45 M/mm3 (3.80-5.20); White Blood Cell Count 13.33 K/mm3 (4.00-11.30)
[2021-07-01 17:45] LABS: Albumin/Globulin Ratio 0.9 (0.8-1.8); Bilirubin, Total 0.5 mg/dL (0.1-1.0); Calcium, Blood 7.8 mg/dL (8.5-10.1); Creatinine, Blood 0.96 mg/dL (0.40-1.00); Globulin, Blood 3.4 g/dL (2.2-4.0); Potassium, Blood 3.3 mmol/L (3.5-5.5); Total Protein, Blood 6.4 g/dL (6.4-8.2)
[2021-07-01 18:45] LABS: International Normalized Ratio 2.15; Prothrombin Time Results 21.5 Sec (9.7-11.5)
[2021-07-01 19:06] LABS: Influenza A, PCR NEGATIVE (NEGATIVE); Influenza B, PCR NEGATIVE (NEGATIVE); Resp Syncytial Virus, PCR NEGATIVE (NEGATIVE); SARS-Cov-2 (COVID-19) PCR, MMC NEGATIVE (NEGATIVE)
== END 2021-07-01 20:52 | disposition short-term general hospital (02) ==
LOC: ER 16:00
PROVIDERS: Emergency Medicine; Physician Assistant
DX: N12 Tubulo-interstitial nephritis, not specified as acute or chronic (principal); K92.2 Gastrointestinal hemorrhage, unspecified; J44.9 Chronic obstructive pulmonary disease, unspecified; I10 Essential (primary) hypertension; E03.9 Hypothyroidism, unspecified; Z99.81 Dependence on supplemental oxygen; Z86.73 Personal history of transient ischemic attack (TIA), and cerebral infarction without residual deficits; Z91.048 Other nonmedicinal substance allergy status; Z91.012 Allergy to eggs; Z79.899 Other long term (current) drug therapy
CPT/HCPCS: 0241U; 36415; 71045; 80053; 85025; 85610; 86850; 86900; 86901; 93005; 93010; 96374; 96375; 99285-25; C9113; J0696; J2405; J7030; J7120

== ENCOUNTER 2021-09-10 08:55 | Observation (INO) | payer MEDICARE, OTHER ==
[~2021-09-10] VITALS: Ht 162.6 cm; Wt 55.5 kg
[~2021-09-10 08:55] MED LIST changes: +ALBU90OI INH; +PANT20 PO; +Prinivil10 MG PO
[2021-09-10 09:48] LABS: BASOPHILS ABSOLUTE AUTO 0.02 K/mm3 (0.00-0.23); BASOPHILS PERCENT AUTO 0 % (0-2); EOSINOPHILS ABSOLUTE AUTO 0.01 K/mm3 (0.00-0.68); EOSINOPHILS PERCENT AUTO 0 % (0-6); Hematocrit 35.5 % (33.0-51.0); Hemoglobin 11.8 g/dL (11.5-16.0); IMMATURE GRAN ABSOLUTE AUTO 0.02 K/mm3 (0.00-0.10); IMMATURE GRAN PERCENT AUTO 0 % (0-1); LYMPHOCYTES ABSOLUTE AUTO 0.57 K/mm3 (0.84-5.20); LYMPHOCYTES PERCENT AUTO 9 % (21-46); MONOCYTES ABSOLUTE AUTO 0.66 K/mm3 (0.16-1.47); MONOCYTES PERCENT AUTO 10 % (4-13); Mean Corpuscular HGB 34.9 pg (26.0-34.0); Mean Corpuscular HGB Conc 33.2 g/dL (31.5-36.5); Mean Corpuscular Volume 105 fL (80-100); Mean Platelet Volume 9.4 fL (9.1-12.4); NEUTROPHILS ABSOLUTE AUTO 5.46 K/mm3 (1.96-9.15); NEUTROPHILS PERCENT AUTO 81 % (41-73); Platelet Count 206 K/mm3 (150-400); RDW Coefficient Variation 15.9 % (11.7-14.2); RDW Standard Deviation 61.1 fL (35.1-46.3); Red Blood Cell Count 3.38 M/mm3 (3.80-5.20); White Blood Cell Count 6.74 K/mm3 (4.00-11.30)
[2021-09-10 09:50] LABS: Source, Urine Voided
[2021-09-10 09:53] LABS: Appearance, Urine Hazy (Clear); Bilirubin, Urine Neg (Neg); Blood, Urine 2+ (Neg); Color, Urine Yellow (P-Yellow); Glucose Qualitative, Urine Neg (Neg); Ketones, Urine Neg (Neg); Leukocyte Esterase, Urine 2+ (Neg); Nitrite, Urine Neg (Neg); Protein, Urine 1+ (Neg); Specific Gravity, Urine 1.025 (1.003-1.022); Urobilinogen, Urine NORM (Normal)
[2021-09-10 10:12] LABS: White Blood Cells, Urine 25-50 /hpf (0-5)
[2021-09-10 10:13] LABS: Bacteria Many /hpf; Hyaline Casts 0-2 /lpf (0-2); Squamous Epithelial Cells Rare /hpf (Few)
[2021-09-10 10:25] LABS: Alanine Aminotransfer (ALT/SGP 81 U/L (12-78); Albumin, Blood 3.3 g/dL (3.4-5.0); Alk Phos 141 U/L (50-136); Anion Gap 5 mmol/L (6-16); Aspartate Aminotrans (AST/SGOT 65 U/L (12-37); Bilirubin, Total 0.6 mg/dL (0.1-1.0); Blood Urea Nitrogen 20 mg/dL (8-24); Bun/Creatinine Ratio 28.6 (12.0-20.0); CO2, Blood 30 mmol/L (21-32); Calcium, Blood 9.5 mg/dL (8.5-10.1); Chloride, Blood 107 mmol/L (98-108); Globulin, Blood 3.3 g/dL (2.2-4.0); Glomerular Filtration Rate >60 (60-); Glucose, Blood 122 mg/dL (70-99); Potassium, Blood 3.8 mmol/L (3.5-5.5); Sodium, Blood 142 mmol/L (136-145); Total Protein, Blood 6.6 g/dL (6.4-8.2)
[2021-09-10 13:19] LABS: Hematocrit 31.7 % (33.0-51.0); Hemoglobin 10.5 g/dL (11.5-16.0)
--- NOTE | 2021-09-10 13:45 | NUR ---
PT ARRIVED TO ROOM 330 FROM ER VIA [facility], PROTHESIS IN PLACE, PT ABLE TO STAND AND TRANSFER TO BED. BED IN LOWEST POSITION AND CALL RILEY IN REACH. ORIENTED TO ROOM AND CALL SYSTEM. WILL MONITOR
[2021-09-10] MEDS ORDERED: TIOT18 INH (14:31)
--- NOTE | 2021-09-10 17:54 | NUR ---
SPOKE WITH SUMMER IN CT RE: CT ABD FOR RM 330, DR RIZVI WANTS IT DONE TONIGHT. PER SUMMER IT WILL GET DONE SOME TIME TONIGHT
[2021-09-10 18:09] LABS: Hematocrit 34.5 % (33.0-51.0); Hemoglobin 11.3 g/dL (11.5-16.0)
--- NOTE | 2021-09-10 19:23 | NUR ---
PT RESTING COMFORTABLY WATCHING TV, PT TO BE NPO AT 0700 TOMORROW FOR POSSIBLE EGD. TOLERATING CLEAR LIQUID DIET THIS EVENING. WILL CONTINUE TO MONITOR AND REPORT TO ONCOMING RN
[2021-09-11 00:46] LABS: Hematocrit 32.1 % (33.0-51.0); Hemoglobin 10.9 g/dL (11.5-16.0)
[2021-09-11 06:02] LABS: BASOPHILS ABSOLUTE AUTO 0.02 K/mm3 (0.00-0.23); BASOPHILS PERCENT AUTO 0 % (0-2); EOSINOPHILS ABSOLUTE AUTO 0.03 K/mm3 (0.00-0.68); EOSINOPHILS PERCENT AUTO 0 % (0-6); Hematocrit 33.7 % (33.0-51.0); Hemoglobin 11.2 g/dL (11.5-16.0); IMMATURE GRAN ABSOLUTE AUTO 0.01 K/mm3 (0.00-0.10); IMMATURE GRAN PERCENT AUTO 0 % (0-1); LYMPHOCYTES ABSOLUTE AUTO 0.72 K/mm3 (0.84-5.20); LYMPHOCYTES PERCENT AUTO 10 % (21-46); MONOCYTES ABSOLUTE AUTO 0.76 K/mm3 (0.16-1.47); MONOCYTES PERCENT AUTO 11 % (4-13); Mean Corpuscular HGB Conc 33.2 g/dL (31.5-36.5); Mean Corpuscular Volume 105 fL (80-100); NEUTROPHILS PERCENT AUTO 78 % (41-73); Platelet Count 201 K/mm3 (150-400); RDW Coefficient Variation 15.6 % (11.7-14.2); RDW Standard Deviation 60.8 fL (35.1-46.3); White Blood Cell Count 7.04 K/mm3 (4.00-11.30)
--- NOTE | 2021-09-11 06:04 | NUR ---
SHIFT SUMMARY: PT IS A/OX4. SHE WILL BE NPO AT 0700 FOR AN UPPER SCOPE. SHE DOES HAVE A RT BKA PROSTHESIS IN THE ROOM, BUT IS ABLE TO DO A STAND & PIVOT W/ 1 PA TO THE BSC. NO C/O OF N/V OR AND GI ISSUES. SHE DOES HAVE A PPI RUNNING CONTINOUS AND FINISHED A ONE TIME BAG OF NS. SHE IS ON 3L OF O2 (BASELINE OF 2-3L). HER CALL LIGHT IS WITHIN REACH AND WE'LL CONTINUE TO MONITOR.
[2021-09-11 07:02] LABS: Alanine Aminotransfer (ALT/SGP 77 U/L (12-78); Albumin, Blood 2.9 g/dL (3.4-5.0); Albumin/Globulin Ratio 0.8 (0.8-1.8); Alk Phos 123 U/L (50-136); Anion Gap 4 mmol/L (6-16); Aspartate Aminotrans (AST/SGOT 60 U/L (12-37); Bilirubin, Total 0.6 mg/dL (0.1-1.0); Blood Urea Nitrogen 14 mg/dL (8-24); Bun/Creatinine Ratio 23.5 (12.0-20.0); CO2, Blood 27 mmol/L (21-32); Calcium, Blood 8.8 mg/dL (8.5-10.1); Chloride, Blood 108 mmol/L (98-108); Globulin, Blood 3.8 g/dL (2.2-4.0); Glomerular Filtration Rate >60 (60-); Glucose, Blood 105 mg/dL (70-99); Potassium, Blood 3.5 mmol/L (3.5-5.5); Sodium, Blood 139 mmol/L (136-145); Total Protein, Blood 6.7 g/dL (6.4-8.2)
[2021-09-11 10:38] LABS: Influenza A, PCR NEGATIVE (NEGATIVE); Influenza B, PCR NEGATIVE (NEGATIVE); Resp Syncytial Virus, PCR NEGATIVE (NEGATIVE); SARS-Cov-2 (COVID-19) PCR, MMC NEGATIVE (NEGATIVE)
[2021-09-11] MEDS ORDERED: MIRALAX17 GM PO (15:06)
[2021-09-11] MEDS ORDERED: ONDA4ODT MM (15:06)
[2021-09-11] MEDS ORDERED: VISBIOME 112.51 EACH PO (15:07)
[2021-09-11] MEDS ORDERED: ACET325 PO (15:08)
[2021-09-11] MEDS ORDERED: CEFD300 PO (15:09)
--- NOTE | 2021-09-11 16:56 | NUR ---
DISCHARGE PATIENT TRANSPORTED VIA WHEELCHAIR TO PRIVATE VEHICLE. DISCHARGE INSTRUCTIONS EXPLAINED TO PATIENT AND SON. BOTH STATED UNDERSTANDING. DISCHARGE PACKET SENT WITH PATIENT. IV REMOVED WITHOUT DIFFICULTY. TELE REMOVED WITHOUT DIFFICULTY. MEDICATIONS FAXED TO PREFERRED PHARMACY. BELONGINGS SENT WITH PATIENT. FOLLOW UP WITH PCP SCHEDULED.
== END 2021-09-11 16:40 | disposition home or self-care (01) ==
LOC: ER 08:55 → MEDS 08:56
PROVIDERS: Emergency Medicine; Family Medicine; ADMIT Internal Medicine
DX: K92.0 Hematemesis (principal); D50.9 Iron deficiency anemia, unspecified; N39.0 Urinary tract infection, site not specified; J44.9 Chronic obstructive pulmonary disease, unspecified; I10 Essential (primary) hypertension; E78.5 Hyperlipidemia, unspecified; E03.9 Hypothyroidism, unspecified; Z86.73 Personal history of transient ischemic attack (TIA), and cerebral infarction without residual deficits; Z87.891 Personal history of nicotine dependence; Z20.822 Contact with and (suspected) exposure to COVID-19
CPT/HCPCS: 0241U; 36415; 74176; 80053; 81001; 83690; 84145; 85014; 85018; 85025; 87077; 87086; 87186; A9270; C9113; J0360; J0696; J2405; J7030

== ENCOUNTER 2021-09-15 22:04 | Inpatient (IN) | payer MEDICARE, OTHER ==
[~2021-09-15] VITALS: Ht 162.6 cm; Wt 57.6 kg
[~2021-09-15 22:04] MED LIST changes: +ACET325 PO; +ONDA4ODT MM
[2021-09-16 01:29] LABS: BASOPHILS ABSOLUTE AUTO 0.02 K/mm3 (0.00-0.23); BASOPHILS PERCENT AUTO 0 % (0-2); EOSINOPHILS ABSOLUTE AUTO 0.01 K/mm3 (0.00-0.68); EOSINOPHILS PERCENT AUTO 0 % (0-6); Hematocrit 42.1 % (33.0-51.0); IMMATURE GRAN ABSOLUTE AUTO 0.04 K/mm3 (0.00-0.10); IMMATURE GRAN PERCENT AUTO 0 % (0-1); LYMPHOCYTES ABSOLUTE AUTO 0.71 K/mm3 (0.84-5.20); LYMPHOCYTES PERCENT AUTO 6 % (21-46); MONOCYTES ABSOLUTE AUTO 0.99 K/mm3 (0.16-1.47); MONOCYTES PERCENT AUTO 9 % (4-13); Mean Corpuscular HGB 34.6 pg (26.0-34.0); Mean Corpuscular HGB Conc 33.3 g/dL (31.5-36.5); Mean Corpuscular Volume 104 fL (80-100); Mean Platelet Volume 9.4 fL (9.1-12.4); NEUTROPHILS ABSOLUTE AUTO 9.41 K/mm3 (1.96-9.15); NEUTROPHILS PERCENT AUTO 84 % (41-73); Platelet Count 340 K/mm3 (150-400); RDW Coefficient Variation 14.9 % (11.7-14.2); RDW Standard Deviation 57.8 fL (35.1-46.3); Red Blood Cell Count 4.05 M/mm3 (3.80-5.20); White Blood Cell Count 11.18 K/mm3 (4.00-11.30)
[2021-09-16 01:38] LABS: Bun/Creatinine Ratio 17.6 (12.0-20.0); Creatinine, Blood 1.02 mg/dL (0.40-1.00); Potassium, Blood 4.1 mmol/L (3.5-5.5)
--- NOTE | 2021-09-16 05:36 | NUR ---
SHIFT SUMMARY PT NEW ED ADMIT THIS AM. DX SBO. PT REPORTING NAUSEA AND ABD PAIN TO LOWER QUADRANTS. ABD IS MILDLY DISTENDED. NEW ORDER FOR NG TUBE INSERTION. FOUNDRY MOLDER [place] INSERTED NG TUBE. PT TOLERATED WELL. CONFIRMED WITH ABD AUSCULTATION AND GASTRIC CONTENT OUTPUT. MODERATE AMOUNT OF BROWN OUTPUT. PT MEDICATED W/ ZOFRAN. PT HAS A R BKA WITH PROSTHETIC. PT [place]SFERED [place] WITH [place] [facility] [place] TELEMETRY MONITORING. PER [employer] STACH 107. PT ON 3 L VIA NC. CONTINUOUSLY SHORT OF BREATH. PT WEARS 2 L AT HOME AND REPORTS THAT HER SHORTNESS OF BREATH IS CHRONIC AND AT BASELINE. VITAL SIGNS STABLE. PT RESTING IN BED AT THIS TIME. WILL CONTINUE TO MONITOR.
--- NOTE | 2021-09-16 17:03 | NUR ---
PT IS A/OX3, PLEASANT AND COOPERATIVE. PT IS ON O2 @ 3L/MIN VIA NC. PT IS SOB WITH MINIMAL ACTIVITY. PT IS ON LOW INTERMITEN SUCTION VIA NG TUBE,BROWN BILE DRAINING. PT WAS GIVEN A SUPPOSITORY THIS AM AND HAS HAD SEVERAL BM'S T/O THE DAY. PT CONTINUES TO REPORT ABD PAIN, HOWEVER. PTS BP ELEVATED PRN HYDRAZOLINE GIVEN. PTS SON WAS AT THE BEDSIDE TODAY. CALL LIGHT IN REACH WILL CONTINUE TO MONITOR AND ASSESS FOR CHANGES
--- NOTE | 2021-09-17 03:19 | NUR ---
SHIFT SUMMARY NO ACUTE CHANGES TO REPORT THIS SHIFT. PT STILL GETS VERY WINDED WITH EXERTION AND DESATS IN THE 80'S WITH AMBULATION AND EXERTION. PT O2 WAS DECREASED TO 6L, BUT PT DID NOT RECOVER WHEN RETURNING FROM THE BEDSIDE COMMONDE AND WAS SUSTAINING SATS IN THE 80'S. SO SHE WAS INCREASED BACK TO 8L DURING THE NIGHT. PT IS NOW MAINTAINIG SATS IN THE MID TO UPPER 90'S. IV ANTIBIOTICS PER ORDERS. VITALS STABLE. PT SLEPT MOST OF THE NIGHT AND DENIED PAIN OR NEEDS. BED IN LOWEST POSITION, CALL LIGHT WITHIN REACH.
--- NOTE | 2021-09-17 03:30 | NUR ---
SHIFT SUMMARY PT HAS RESTED MOST OF THE NIGHT. PT CONTINUES TO HAVE BM'S AND HAD ONE LOOSE ONE THIS SHIFT. SHE STATES SINCE HAVING BM'S THE PRESSUE IN HER ABD IS DECREASING AND SHE IS FEELING SOME RELIEF, AND STATES THAT HER ABD PAIN IN HER LOWER ABD IS IMPROVING. PT IS STILL HAVING OUTPUT FROM HER NG. GREEN/BROWNISH IN COLOR. VITALS STABLE. NO ACUTE CHANGES OVERNIGHT. BED IN LOWEST POSITION, CALL LIGHT WITHIN REACH.
[2021-09-17 06:36] LABS: BASOPHILS ABSOLUTE AUTO 0.04 K/mm3 (0.00-0.23); BASOPHILS PERCENT AUTO 1 % (0-2); EOSINOPHILS ABSOLUTE AUTO 0.12 K/mm3 (0.00-0.68); EOSINOPHILS PERCENT AUTO 2 % (0-6); Hematocrit 37.4 % (33.0-51.0); IMMATURE GRAN ABSOLUTE AUTO 0.02 K/mm3 (0.00-0.10); IMMATURE GRAN PERCENT AUTO 0 % (0-1); LYMPHOCYTES ABSOLUTE AUTO 0.62 K/mm3 (0.84-5.20); LYMPHOCYTES PERCENT AUTO 9 % (21-46); MONOCYTES ABSOLUTE AUTO 0.93 K/mm3 (0.16-1.47); MONOCYTES PERCENT AUTO 14 % (4-13); Mean Corpuscular HGB 34.4 pg (26.0-34.0); Mean Corpuscular HGB Conc 32.1 g/dL (31.5-36.5); Mean Corpuscular Volume 107 fL (80-100); NEUTROPHILS ABSOLUTE AUTO 5.06 K/mm3 (1.96-9.15); NEUTROPHILS PERCENT AUTO 75 % (41-73); Platelet Count 290 K/mm3 (150-400); RDW Coefficient Variation 14.8 % (11.7-14.2); RDW Standard Deviation 58.4 fL (35.1-46.3); Red Blood Cell Count 3.49 M/mm3 (3.80-5.20); White Blood Cell Count 6.79 K/mm3 (4.00-11.30)
[2021-09-17 06:57] LABS: Anion Gap 5 mmol/L (6-16); Blood Urea Nitrogen 22 mg/dL (8-24); Bun/Creatinine Ratio 25.3 (12.0-20.0); CO2, Blood 28 mmol/L (21-32); Calcium, Blood 9.1 mg/dL (8.5-10.1); Chloride, Blood 107 mmol/L (98-108); Creatinine, Blood 0.87 mg/dL (0.40-1.00); Glomerular Filtration Rate >60 (60-); Glucose, Blood 84 mg/dL (70-99); Potassium, Blood 4.6 mmol/L (3.5-5.5); Sodium, Blood 140 mmol/L (136-145)
--- NOTE | 2021-09-17 10:25 | NUR ---
NG TUBE DC'D PER DR. Alfred ORDER. PT TOLERATED WELL
--- NOTE | 2021-09-17 16:59 | NUR ---
SHIFT SUMMARY PT AXO, COOPERATIVE WITH CARE THOUGH IRRITABLE. BP OF 159/91 AT 1605, MEDICATED PER EMAR. THIS NURSE WAS NOT NOTIFIED BY POWERTRAIN CONTROL SYSTEMS ENGINEER OF MORNING BP OF 156/100. OTHERWISE, VSS. PT DENIES PAIN AND SOB THOUGH REPORTS NAUSEA THIS AFTERNOON, MEDICATED PER EMAR AND DR. Tima GAMBLE. PT AND POWERTRAIN CONTROL SYSTEMS ENGINEER ALSO REPORT FOUR EPISODES OF DIARRHEA THROUGHOUT THE SHIFT. PT 100% ON 2.5L. BED IN LOW POSITION, CALL LIGHT WITHIN REACH.
--- NOTE | 2021-09-18 03:37 | NUR ---
PT IS ALERT AND ORIENTED X4. SAT 100% ON 2 LITERS. LUNGS SOUNDS FINE CRACKLES. VOIDING. HAVING BM; STARTED THE SHIFT WITH LOOSE STOOLS AND NOW ARE MORE FORMED SOFT. TAKING CLEARS AMD TOLERATING WELL. NO N/V. NO C/O PAIN. LEFT LEG HAS 2+ EDEMA. BUTTOCKS IS CDI. HAS A DRY COUGH. TELE: TACHY OF 107
--- NOTE | 2021-09-18 08:02 | NUR ---
pt laying in bed awake a/ox3, cooperative with care, follows commands well, denies pain this am, states she had several bm's durring the night, seems irritable, lungs are dim t/o, currently on 2 liters o2 via n/c, states that is her baseline, no cough noted, hrr, tele in place running sr to st per monitor, see strip, 4+ edema noted to left foot, rbka, bt not auscultated, abd soft nontender with palpation, has pullups on, gets up to bsc with one person assist, skin c/d/i, carolin, betito, iv site is clear and patent, call light in reach.
[2021-09-18] MEDS ORDERED: BISA10S PR (17:28)
--- NOTE | 2021-09-18 18:00 | NUR ---
pt has been discharged after she tolerated a full liquid lunch, iv removed intact, son who is her caregiver is here to take her home, left via wheelchair with her son with all her belongings after going over her discharge instructions.
== END 2021-09-18 18:01 | disposition home or self-care (01) | DRG 390 ==
LOC: ER 22:04 → MEDS 09-16 02:34
PROVIDERS: Emergency Medicine; Family Medicine; ADMIT Internal Medicine
DX: K56.600 Partial intestinal obstruction, unspecified as to cause (principal); Z66 Do not resuscitate; E86.0 Dehydration; Q27.33 Arteriovenous malformation of digestive system vessel; Z53.29 Procedure and treatment not carried out because of patient's decision for other reasons; J44.9 Chronic obstructive pulmonary disease, unspecified; I12.9 Hypertensive chronic kidney disease with stage 1 through stage 4 chronic kidney disease, or unspecified chronic kidney disease; N18.9 Chronic kidney disease, unspecified; K21.9 Gastro-esophageal reflux disease without esophagitis; E03.9 Hypothyroidism, unspecified; Z99.81 Dependence on supplemental oxygen; Z86.73 Personal history of transient ischemic attack (TIA), and cerebral infarction without residual deficits; Z89.511 Acquired absence of right leg below knee; Z90.49 Acquired absence of other specified parts of digestive tract; Z90.89 Acquired absence of other organs; Z98.890 Other specified postprocedural states; Z87.891 Personal history of nicotine dependence; Z88.8 Allergy status to other drugs, medicaments and biological substances; Z91.012 Allergy to eggs; Z79.82 Long term (current) use of aspirin; Z79.899 Other long term (current) drug therapy
CPT/HCPCS: 36415; 74176; 80048; 85025; 94640; 94760; 94762; 97162; 97165; 97530; 97535; 99285-25; A9270; C9113; J0360; J2405; J7030

== ENCOUNTER 2021-12-01 16:35 | Emergency (ER) | payer MEDICARE, OTHER ==
[~2021-12-01] VITALS: Ht 162.6 cm; Wt 56.7 kg
[~2021-12-01 16:35] MED LIST changes: +BISA10S PR
[2021-12-01] MEDS ORDERED: CEPH500 PO (19:00)
== END 2021-12-01 19:08 | disposition home or self-care (01) ==
LOC: ER 16:35
DX: L02.416 Cutaneous abscess of left lower limb (principal); J44.9 Chronic obstructive pulmonary disease, unspecified; I10 Essential (primary) hypertension; E03.9 Hypothyroidism, unspecified; Z86.73 Personal history of transient ischemic attack (TIA), and cerebral infarction without residual deficits; Z91.018 Allergy to other foods; Z91.012 Allergy to eggs; Z79.899 Other long term (current) drug therapy
CPT/HCPCS: 10061; 99282-25; A9270

== ENCOUNTER → 2022-02-02 | Outpatient (CLI) | payer MEDICARE, OTHER ==
[~2022-02-02] MED LIST changes: +NITR100CA PO; +ONDA4 PO
== END | disposition home or self-care (01) ==
LOC: LAB 12:00 → LAB SHORT 12:00
DX: N39.0 Urinary tract infection, site not specified (principal)
CPT/HCPCS: 87077; 87086; 87186

== ENCOUNTER → 2022-02-07 | Outpatient (CLI) | payer MEDICARE, OTHER ==
[2022-02-07 21:10] LABS: Adenovirus F 40/41 Not Detected (NOT DETECT); Astrovirus Not Detected (NOT DETECT); Campylobacter Sp Not Detected (NOT DETECT); Cryptosporidium Not Detected (NOT DETECT); Cyclospora Cayetanensis Not Detected (NOT DETECT); E. Coli O157 Not Detected (NOT DETECT); Entamoeba Histolytica Not Detected (NOT DETECT); Enteroaggregative E. coli-EAEC Not Detected (NOT DETECT); Enteropathogenic E. coli-EPEC Not Detected (NOT DETECT); Enterotoxigenic E. coli-ETEC Not Detected (NOT DETECT); Giardia Lamblia Not Detected (NOT DETECT); Norovirus GI/GII Not Detected (NOT DETECT); Plesiomonas Shigelloides Not Detected (NOT DETECT); Rotavirus A Not Detected (NOT DETECT); Salmonella Sp Not Detected (NOT DETECT); Sapovirus Not Detected (NOT DETECT); Shiga Toxin-prod E. coli-STEC Not Detected (NOT DETECT); Shigella/Enteroin E. coli-EIEC Not Detected (NOT DETECT); Vibrio Cholerae Not Detected (NOT DETECT); Vibrio Sp Not Detected (NOT DETECT); Yersinia Enterocolitica Not Detected (NOT DETECT)
== END | disposition home or self-care (01) ==
LOC: LAB 14:34 → LAB SHORT 14:34
PROVIDERS: Emergency Medicine
DX: R19.7 Diarrhea, unspecified (principal)
CPT/HCPCS: 87324; 87507

== ENCOUNTER 2022-03-10 15:18 | Inpatient (IN) | payer MEDICARE, OTHER ==
[~2022-03-10] VITALS: Ht 162.6 cm; Wt 53.2 kg
[~2022-03-10 15:18] MED LIST changes: +Amlodipine Bes2.5 MG PO; +FURO20 PO; +METR250; +POTA10T PO; -Prinivil10 MG PO; +VANCOCIN HCL125 MG PO
[2022-03-10 16:03] LABS: BASOPHILS ABSOLUTE AUTO 0.02 K/mm3 (0.00-0.23); BASOPHILS PERCENT AUTO 0 % (0-2); EOSINOPHILS ABSOLUTE AUTO 0.02 K/mm3 (0.00-0.68); EOSINOPHILS PERCENT AUTO 0 % (0-6); Hematocrit 31.1 % (33.0-51.0); IMMATURE GRAN ABSOLUTE AUTO 0.02 K/mm3 (0.00-0.10); IMMATURE GRAN PERCENT AUTO 0 % (0-1); LYMPHOCYTES PERCENT AUTO 12 % (21-46); MONOCYTES ABSOLUTE AUTO 0.95 K/mm3 (0.16-1.47); MONOCYTES PERCENT AUTO 14 % (4-13); Mean Corpuscular HGB 32.2 pg (26.0-34.0); Mean Corpuscular HGB Conc 32.2 g/dL (31.5-36.5); Mean Corpuscular Volume 100 fL (80-100); NEUTROPHILS ABSOLUTE AUTO 5.09 K/mm3 (1.96-9.15); NEUTROPHILS PERCENT AUTO 74 % (41-73); Platelet Count 267 K/mm3 (150-400); RDW Coefficient Variation 14.3 % (11.7-14.2); Red Blood Cell Count 3.11 M/mm3 (3.80-5.20)
[2022-03-10 16:31] LABS: Albumin, Blood 3.2 g/dL (3.4-5.0); Albumin/Globulin Ratio 0.9 (0.8-1.8); Bilirubin, Total 0.7 mg/dL (0.1-1.0); Calcium, Blood 9.1 mg/dL (8.5-10.1); Creatinine, Blood 0.65 mg/dL (0.40-1.00); Globulin, Blood 3.6 g/dL (2.2-4.0); Potassium, Blood 4.1 mmol/L (3.5-5.5); Total Protein, Blood 6.8 g/dL (6.4-8.2)
[2022-03-10 18:11] LABS: Source, Urine Clean Catch
[2022-03-10 18:25] LABS: Appearance, Urine Hazy (Clear); Bilirubin, Urine Neg (Neg); Blood, Urine 2+ (Neg); Color, Urine Yellow (P-Yellow); Glucose Qualitative, Urine Neg (Neg); Ketones, Urine 1+ (Neg); Leukocyte Esterase, Urine 3+ (Neg); Nitrite, Urine Neg (Neg); Protein, Urine 2+ (Neg); Urobilinogen, Urine 1+ (Normal)
[2022-03-10 18:32] LABS: White Blood Cells, Urine 50-100 /hpf (0-5)
[2022-03-10 18:33] LABS: Bacteria Many /hpf; Squamous Epithelial Cells Few /hpf (Few)
--- NOTE | 2022-03-11 03:10 | NUR ---
ADMIT NOTE (2245 HOURS, 03/10/22) PT ARRIVED TO FLOOR VIA GURNEY. PT ORIENTED TO UNIT. IV FLUIDS INFUSING ORDERED. TELEMETRY MONITORING IN PLACE. PERSONAL POSSESSIONS WITH PT. CALL BUTTON WITHIN REACH.
--- NOTE | 2022-03-11 04:36 | NUR ---
SHIFT SUMMARY ADMITTED FOR N/V/D. RECENT HX OF C DIFF - OUTPT TX. DNR CODE. NO N/V THIS SHIFT. UNABLE TO GET STOOL SAMPLE COLLECTION HAS BEEN CONTAMINATED WITH URINE EACH TIME. TELEMETRY: TACHY @ 100 BPM. IV ANTIB RX ARE SCHEDULED. 2 G LOW NA+. A&O X4. COVID NEGATIVE. 2 LPM O2 VIA NC @ BASELINE. 1 ASSIST TO BSC. RIGHT BKA.
--- NOTE | 2022-03-11 17:03 | NUR ---
SHIFT SUMMARY PATIENT IS ALERT AND ORIENTED. PATIENT HAS BEEN PLEASENT AND COOPERATIVE WITH CARE. PATIENT IS A ONE PERSON ASSIST TO BSC. PATIENT IN ISOLATION FOR CDIFF RULEOUT. PATIENT HAS HAD TWO BMS TODAY BUT FAMILY TOOK PATIENT TO BATHROOM BOTH TIMES AND WASNT ABLE TO COLLECT SAMPLE. BM WAS LOOSE AND RUNNY PER FAMILY. NO ACUTE EVENTS THIS SHIFT. VITAL SIGNS REVIEWED. BED IN LOCKED AND LOWEST POSITION. CALL LIGHT IN PLACE. WILL MONITOR UNTIL SHIFT CHANGE.
--- NOTE | 2022-03-12 05:27 | NUR ---
SHIFT SUMMARY 81 YR F ADMITTED ON 03/11/22 FOR WEAKNESS AND N/V. DNR. NO ACUTE CHANGES THIS SHIFT. PT IS STILL HAVING DIARRHEA EVERTIME SHE GETS UP TO THE TOILET, BUT THE AMOUNT IS GETTING LESS AND LESS EACH TIME ( 4 X THIS SHIFT). SHE IS PLEASANT AND COOPERATIVE W/ CARE AND DOES VERY WELL AMBULATING DESPITE HER BKA.
[2022-03-12 05:50] LABS: BASOPHILS ABSOLUTE AUTO 0.01 K/mm3 (0.00-0.23); BASOPHILS PERCENT AUTO 0 % (0-2); EOSINOPHILS ABSOLUTE AUTO 0.03 K/mm3 (0.00-0.68); EOSINOPHILS PERCENT AUTO 1 % (0-6); Hematocrit 27.4 % (33.0-51.0); Hemoglobin 8.7 g/dL (11.5-16.0); IMMATURE GRAN ABSOLUTE AUTO 0.02 K/mm3 (0.00-0.10); IMMATURE GRAN PERCENT AUTO 0 % (0-1); LYMPHOCYTES ABSOLUTE AUTO 0.74 K/mm3 (0.84-5.20); LYMPHOCYTES PERCENT AUTO 11 % (21-46); MONOCYTES ABSOLUTE AUTO 0.95 K/mm3 (0.16-1.47); MONOCYTES PERCENT AUTO 15 % (4-13); Mean Corpuscular HGB 31.8 pg (26.0-34.0); Mean Corpuscular HGB Conc 31.8 g/dL (31.5-36.5); Mean Corpuscular Volume 100 fL (80-100); Mean Platelet Volume 9.1 fL (9.1-12.4); NEUTROPHILS ABSOLUTE AUTO 4.77 K/mm3 (1.96-9.15); NEUTROPHILS PERCENT AUTO 73 % (41-73); Platelet Count 230 K/mm3 (150-400); RDW Coefficient Variation 14.3 % (11.7-14.2); RDW Standard Deviation 52.9 fL (35.1-46.3); Red Blood Cell Count 2.74 M/mm3 (3.80-5.20); White Blood Cell Count 6.52 K/mm3 (4.00-11.30)
[2022-03-12 06:13] LABS: Albumin, Blood 2.6 g/dL (3.4-5.0); Albumin/Globulin Ratio 0.8 (0.8-1.8); Bilirubin, Total 0.4 mg/dL (0.1-1.0); Calcium, Blood 8.4 mg/dL (8.5-10.1); Creatinine, Blood 0.5 mg/dL (0.40-1.00); Globulin, Blood 3.2 g/dL (2.2-4.0); Total Protein, Blood 5.8 g/dL (6.4-8.2)
--- NOTE | 2022-03-12 18:09 | NUR ---
PT HAS BEEN STABLE THIS SHIFT. BP ELEVATED AT TIMES. TELE SR-ST. PT HAS GENERALIZED WEAKNESS. 1 ASSIST TO COMMODE. CONT TO HAVE LOOSE STOOLS, CDIFF SAMPLE SENT, RESULT PENDING. NO UTI SYMPTOMS. POOR APPETITE. CONT IV FLUIDS ORDERED. OCCASIONAL NAUSEA, MEDICATED X1, EFFECTIVE. PT REMAINS ON HOME O2 LEVEL OF 2L. SOB AT ALL TIMES. DENIES PAIN. LABS TO BE REPEATED IN AM. USES CALL LIGHT APPROPRIATELY NEEDED.
[2022-03-12 18:38] LABS: Campylobacter Sp Not Detected (NOT DETECT)
[2022-03-12 18:39] LABS: Adenovirus F 40/41 Not Detected (NOT DETECT); Astrovirus Not Detected (NOT DETECT); Cryptosporidium Not Detected (NOT DETECT); Cyclospora Cayetanensis Not Detected (NOT DETECT); E. Coli O157 Not Detected (NOT DETECT); Entamoeba Histolytica Not Detected (NOT DETECT); Enteroaggregative E. coli-EAEC Not Detected (NOT DETECT); Enteropathogenic E. coli-EPEC Not Detected (NOT DETECT); Enterotoxigenic E. coli-ETEC Not Detected (NOT DETECT); Giardia Lamblia Not Detected (NOT DETECT); Norovirus GI/GII Not Detected (NOT DETECT); Plesiomonas Shigelloides Not Detected (NOT DETECT); Rotavirus A Not Detected (NOT DETECT); Salmonella Sp Not Detected (NOT DETECT); Sapovirus Not Detected (NOT DETECT); Shiga Toxin-prod E. coli-STEC Not Detected (NOT DETECT); Shigella/Enteroin E. coli-EIEC Not Detected (NOT DETECT); Vibrio Cholerae Not Detected (NOT DETECT); Vibrio Sp Not Detected (NOT DETECT); Yersinia Enterocolitica Not Detected (NOT DETECT)
[2022-03-13 05:43] LABS: BASOPHILS ABSOLUTE AUTO 0.01 K/mm3 (0.00-0.23); BASOPHILS PERCENT AUTO 0 % (0-2); EOSINOPHILS ABSOLUTE AUTO 0.01 K/mm3 (0.00-0.68); EOSINOPHILS PERCENT AUTO 0 % (0-6); Hematocrit 29.5 % (33.0-51.0); Hemoglobin 9.3 g/dL (11.5-16.0); IMMATURE GRAN ABSOLUTE AUTO 0.02 K/mm3 (0.00-0.10); IMMATURE GRAN PERCENT AUTO 0 % (0-1); LYMPHOCYTES ABSOLUTE AUTO 0.66 K/mm3 (0.84-5.20); LYMPHOCYTES PERCENT AUTO 7 % (21-46); MONOCYTES ABSOLUTE AUTO 1.09 K/mm3 (0.16-1.47); MONOCYTES PERCENT AUTO 12 % (4-13); Mean Corpuscular HGB 31.5 pg (26.0-34.0); Mean Corpuscular HGB Conc 31.5 g/dL (31.5-36.5); Mean Corpuscular Volume 100 fL (80-100); Mean Platelet Volume 9.2 fL (9.1-12.4); NEUTROPHILS ABSOLUTE AUTO 7.29 K/mm3 (1.96-9.15); NEUTROPHILS PERCENT AUTO 80 % (41-73); Platelet Count 235 K/mm3 (150-400); RDW Coefficient Variation 14.2 % (11.7-14.2); RDW Standard Deviation 51.3 fL (35.1-46.3); Red Blood Cell Count 2.95 M/mm3 (3.80-5.20); White Blood Cell Count 9.08 K/mm3 (4.00-11.30)
[2022-03-13 06:00] LABS: Calcium, Blood 8.5 mg/dL (8.5-10.1); Creatinine, Blood 0.5 mg/dL (0.40-1.00); Potassium, Blood 3.2 mmol/L (3.5-5.5)
--- NOTE | 2022-03-13 07:40 | NUR ---
ASSUMED CARE: PT RESTING IN BED, 2L O2 IN PLACE, NSR ON TELE. DENIES NEEDS OR CONCERNS AT THIS TIME.
--- NOTE | 2022-03-13 09:36 | NUR ---
DR RIGGINS CAME TO SEE PT. ASKED IF IMAGING HAD BEEN DONE. STATES HE WILL REVIEW BUT DOES NOT FEEL NECESSARY FOR PT AT THIS TIME. REVIEWED UA RESULT AND STATED THAT COUNT DID NOT QUALIFY PT FOR ABX AT THIS TIME.
--- NOTE | 2022-03-13 11:39 | NUR ---
PT DECLINED LIQUID POTASSIUM MIXED IN APPLE JUICE. DR MITCHELL ORDERED PO TABLETS. PT ATTEMPTED TO TAKE THEM AND VOMITED. EMESIS WAS RUST COLORED. PT HAD MUFFIN WITH BREAKFAST BUT NOTHING ELSE THAT COULD EXPLAIN COLOR. CALL TO DR MITCHELL TO RELAY COLOR TO HER SO THAT SHE IS AWARE OF POTENTIAL FOR BLOOD. TO ENTER IV POTASSIUM
--- NOTE | 2022-03-13 18:18 | NUR ---
SHIFT SUMMARY: PT VOMITED ONCE THIS SHIFT, RUST COLORED. REPORTED TO HOSPITALIST WHO WAS TO SPEAK WITH DR RIZVI REGARDING FURTHER RECOMMENDATIONS. PT'S SON WAS AT BEDSIDE THIS SHIFT. NO FURTHER NEEDS OR CONCERNS AT THIS TIME.
--- NOTE | 2022-03-14 05:30 | NUR ---
SHIFT SUMMARY 81 YR F ADMITTED FOR N/V, WEAKNESS, AND DIARRHEA. DNR. NO ACUTE CHANGES THIS SHIFT. PT IS ABLE TO GET UP TO BSC INDEPENDANTLY BUT DOES CALL APPROPRIATELY. SHE IS HAVING VERY SMALL AMOUNTS OF DIARRHEA FOR MOST OF THE TIMES THAT SHE URINATES. SHE IS GETTING SOB UPON ANY EXERTION AT ALL, AND TODAY O2 WAS TURNED UP TO 5.
[2022-03-14 05:55] LABS: BASOPHILS ABSOLUTE AUTO 0.01 K/mm3 (0.00-0.23); BASOPHILS PERCENT AUTO 0 % (0-2); EOSINOPHILS ABSOLUTE AUTO 0.03 K/mm3 (0.00-0.68); EOSINOPHILS PERCENT AUTO 0 % (0-6); Hematocrit 30.7 % (33.0-51.0); Hemoglobin 9.3 g/dL (11.5-16.0); IMMATURE GRAN ABSOLUTE AUTO 0.02 K/mm3 (0.00-0.10); IMMATURE GRAN PERCENT AUTO 0 % (0-1); LYMPHOCYTES ABSOLUTE AUTO 0.64 K/mm3 (0.84-5.20); LYMPHOCYTES PERCENT AUTO 8 % (21-46); MONOCYTES ABSOLUTE AUTO 1.07 K/mm3 (0.16-1.47); MONOCYTES PERCENT AUTO 13 % (4-13); Mean Corpuscular HGB 31.1 pg (26.0-34.0); Mean Corpuscular HGB Conc 30.3 g/dL (31.5-36.5); Mean Corpuscular Volume 103 fL (80-100); Mean Platelet Volume 9.3 fL (9.1-12.4); NEUTROPHILS ABSOLUTE AUTO 6.65 K/mm3 (1.96-9.15); NEUTROPHILS PERCENT AUTO 79 % (41-73); Platelet Count 254 K/mm3 (150-400); RDW Coefficient Variation 14.5 % (11.7-14.2); RDW Standard Deviation 54.3 fL (35.1-46.3); Red Blood Cell Count 2.99 M/mm3 (3.80-5.20); White Blood Cell Count 8.42 K/mm3 (4.00-11.30)
[2022-03-14 06:17] LABS: Bun/Creatinine Ratio 10.7 (12.0-20.0); Calcium, Blood 9.3 mg/dL (8.5-10.1); Creatinine, Blood 0.47 mg/dL (0.40-1.00); Potassium, Blood 4.3 mmol/L (3.5-5.5)
--- NOTE | 2022-03-14 08:00 | NUR ---
Pt laying in bed awake, watching tv, a/ox3, shrugs her shoulders when asked how she is doing, lungs are clear, dim in bases, resp even and unalabored, no cough noted, hrr, tele in place running sr in the 80's, no edema noted, ppp+2 on left le, amputation the right, iv site is clear and patent, s.l. btx4, reports multiple episodes of diarrhea last night, voids without diff, skin c/w/d, maew, has a tremor,betito, call light in reach.
[2022-03-14] MEDS ORDERED: BANATROL PLUS1 EAC1 PO (15:00)
[2022-03-14] MEDS ORDERED: LOPE2C PO (15:01)
--- NOTE | 2022-03-14 18:35 | NUR ---
pt had a speech eval, placed on a puree diet, has been continuing to have loose stools, did administer imodium this afternoon, no further changes this shift. call light in reach.
--- NOTE | 2022-03-15 05:43 | NUR ---
AAOX3. PT CONTINUES TO HAVE LOOSE STOOLS. CONTINUED C/O NAUSEA; NO EPISODES OF EMESIS. NO ISSUES NOTED THROUGHOUT SHIFT.
[2022-03-15 06:07] LABS: Bun/Creatinine Ratio 11.4 (12.0-20.0); Calcium, Blood 8.9 mg/dL (8.5-10.1); Creatinine, Blood 0.53 mg/dL (0.40-1.00); Potassium, Blood 3.9 mmol/L (3.5-5.5)
--- NOTE | 2022-03-15 18:41 | NUR ---
DISCHARGE PT DISCHARGING HOME. SHE AND HER SON HAD NO FURTHER QUESTIONS AFTER BEING EDUCATED ON DC INSTRUCTIONS AND NEW MEDS. PT ALREADY HAS AN APPOINTMENT SCHEULDED WITH HER PRIMARY FOR THIS WEEK. PT GIVEN ONE DOSE OF IMODIUM THIS AM AND TOILETED PRIOR TO DC WITH A SOFT, UNFORMED BROWN STOOL. SMALL IN SIZE. PT WHEELED OUT BY AIDE AND DRIVEN HOME BY SON. NO OTHER ACUTE CHANGES IN ASSESSMENT AT THIS TIME. IV REMOVED & INTACT PRIOR TO DC.
== END 2022-03-15 19:43 | disposition home or self-care (01) | DRG 394 ==
LOC: ER 15:18 → MEDS 21:03
PROVIDERS: Emergency Medicine; Family Medicine; Student in an Organized Health Care Education/Training Program; ADMIT Internal Medicine
DX: K52.1 Toxic gastroenteritis and colitis (principal); J96.10 Chronic respiratory failure, unspecified whether with hypoxia or hypercapnia; T36.8X5A Adverse effect of other systemic antibiotics, initial encounter; E87.6 Hypokalemia; R82.71 Bacteriuria; B96.20 Unspecified Escherichia coli [E. coli] as the cause of diseases classified elsewhere; E03.9 Hypothyroidism, unspecified; I10 Essential (primary) hypertension; Z66 Do not resuscitate; J44.9 Chronic obstructive pulmonary disease, unspecified; E78.5 Hyperlipidemia, unspecified; K31.819 Angiodysplasia of stomach and duodenum without bleeding; Z90.710 Acquired absence of both cervix and uterus; Z90.49 Acquired absence of other specified parts of digestive tract; Z89.611 Acquired absence of right leg above knee; Z98.890 Other specified postprocedural states; Z87.891 Personal history of nicotine dependence; Z88.8 Allergy status to other drugs, medicaments and biological substances; Z79.899 Other long term (current) drug therapy; Z99.81 Dependence on supplemental oxygen; D63.8 Anemia in other chronic diseases classified elsewhere; Z86.73 Personal history of transient ischemic attack (TIA), and cerebral infarction without residual deficits
CPT/HCPCS: 36415; 80048; 80053; 81001; 83690; 84132; 85025; 87077; 87086; 87186; 87507; 92610; 94640; 94664; 94760; 96361; 96374; 97110; 97162; 97530; 99284-25; A9270; G0378; J0696; J2405; J2765; J3480; J7030

== ENCOUNTER 2022-03-30 12:46 | Inpatient (IN) | payer MEDICARE, OTHER ==
[~2022-03-30] VITALS: Ht 162.6 cm; Wt 46.5 kg
[~2022-03-30 12:46] MED LIST changes: +BANATROL PLUS1 EAC1 PO; +LOPE2C PO
[2022-03-30 13:45] LABS: BASOPHILS ABSOLUTE AUTO 0.03 K/mm3 (0.00-0.23); BASOPHILS PERCENT AUTO 0 % (0-2); EOSINOPHILS ABSOLUTE AUTO 0.01 K/mm3 (0.00-0.68); EOSINOPHILS PERCENT AUTO 0 % (0-6); Hematocrit 35.5 % (33.0-51.0); Hemoglobin 11.3 g/dL (11.5-16.0); IMMATURE GRAN ABSOLUTE AUTO 0.07 K/mm3 (0.00-0.10); IMMATURE GRAN PERCENT AUTO 0 % (0-1); LYMPHOCYTES ABSOLUTE AUTO 0.73 K/mm3 (0.84-5.20); LYMPHOCYTES PERCENT AUTO 3 % (21-46); MONOCYTES ABSOLUTE AUTO 2.09 K/mm3 (0.16-1.47); MONOCYTES PERCENT AUTO 10 % (4-13); Mean Corpuscular HGB 30.9 pg (26.0-34.0); Mean Corpuscular HGB Conc 31.8 g/dL (31.5-36.5); Mean Corpuscular Volume 97 fL (80-100); Mean Platelet Volume 8.5 fL (9.1-12.4); NEUTROPHILS PERCENT AUTO 87 % (41-73); Platelet Count 371 K/mm3 (150-400); RDW Coefficient Variation 14.9 % (11.7-14.2); RDW Standard Deviation 53.1 fL (35.1-46.3); Red Blood Cell Count 3.66 M/mm3 (3.80-5.20); White Blood Cell Count 21.73 K/mm3 (4.00-11.30)
[2022-03-30 14:03] LABS: Albumin/Globulin Ratio 0.8 (0.8-1.8); Bilirubin, Total 0.7 mg/dL (0.1-1.0); Bun/Creatinine Ratio 39.3 (12.0-20.0); Calcium, Blood 9.1 mg/dL (8.5-10.1); Creatinine, Blood 0.41 mg/dL (0.40-1.00); Globulin, Blood 3.7 g/dL (2.2-4.0); Potassium, Blood 3.7 mmol/L (3.5-5.5); Total Protein, Blood 6.7 g/dL (6.4-8.2)
[2022-03-31 05:12] LABS: BASOPHILS ABSOLUTE AUTO 0.03 K/mm3 (0.00-0.23); BASOPHILS PERCENT AUTO 0 % (0-2); EOSINOPHILS PERCENT AUTO 0 % (0-6); Hematocrit 32.4 % (33.0-51.0); Hemoglobin 10.1 g/dL (11.5-16.0); IMMATURE GRAN ABSOLUTE AUTO 0.15 K/mm3 (0.00-0.10); IMMATURE GRAN PERCENT AUTO 1 % (0-1); LYMPHOCYTES ABSOLUTE AUTO 0.65 K/mm3 (0.84-5.20); LYMPHOCYTES PERCENT AUTO 3 % (21-46); MONOCYTES ABSOLUTE AUTO 1.96 K/mm3 (0.16-1.47); MONOCYTES PERCENT AUTO 9 % (4-13); Mean Corpuscular HGB Conc 31.2 g/dL (31.5-36.5); Mean Corpuscular Volume 99 fL (80-100); Mean Platelet Volume 8.9 fL (9.1-12.4); NEUTROPHILS ABSOLUTE AUTO 19.94 K/mm3 (1.96-9.15); NEUTROPHILS PERCENT AUTO 88 % (41-73); Platelet Count 326 K/mm3 (150-400); RDW Coefficient Variation 15.3 % (11.7-14.2); RDW Standard Deviation 55.6 fL (35.1-46.3); Red Blood Cell Count 3.26 M/mm3 (3.80-5.20); White Blood Cell Count 22.73 K/mm3 (4.00-11.30)
[2022-03-31 05:39] LABS: Albumin, Blood 2.6 g/dL (3.4-5.0); Albumin/Globulin Ratio 0.7 (0.8-1.8); Bilirubin, Total 0.7 mg/dL (0.1-1.0); Bun/Creatinine Ratio 29.1 (12.0-20.0); Calcium, Blood 8.7 mg/dL (8.5-10.1); Creatinine, Blood 0.59 mg/dL (0.40-1.00); Globulin, Blood 3.5 g/dL (2.2-4.0); Potassium, Blood 3.6 mmol/L (3.5-5.5); Total Protein, Blood 6.1 g/dL (6.4-8.2)
--- NOTE | 2022-03-31 06:05 | NUR ---
TUNNEL HEADING SUPERVISOR SUMMARY ADMITTED FOR NVD, C DIFF. PT IS A DNR. SHE IS ALERT AND ORIENTED X4. CONTINUING TO HAVE DIARRHEA THROUGHOUT THE NIGHT. PT WITH RIGHT BKA BUT IS STEADY AND IS SBA TO THE COMMODE. SHE HAS A HISTORY OF CHRONIC C DIFF INFECTION WITH ADMISSIONS. PT RECEIVED ORAL ABX X1 IN THE ER. CURRENTLY ON LR AT 100 ML/HR. NO ACUTE EVENTS. TELE HAS BEEN NORMAL SINUS.
--- NOTE | 2022-03-31 17:54 | NUR ---
SHIFT SUMMARY 82-YEAR-OLD PTN RESTING MOST OF DAY, SON AT BEDSIDE. DNR. ISOLATION PER PROTOCOL IN PLACE FOR RULE-OUT C-DIFF. NO SAMPLE COLLECTED THIS SHIFT. A&O X4, STANDBY ASSIST, PTN WITH R BKA AND DOES HAVE PROSTHESIS. CONTINENT AND USES BEDSIDE COMMODE. 3 L NC CONTINUOUS. L AC PERIPHERAL IV, PATENT. SECOND PERIPHERAL LINE PLACE IN RIGHT FOREARM THIS SHIFT. PTN NPO DUE TO N/V. TELE SINUS TACHY @ 105 BY RHYTHM STRIP. SURGICAL CONSULT DONE TODAY. CONTINUE TO MONITOR.
--- NOTE | 2022-04-01 04:17 | NUR ---
SHIFT SUMMARY; PATIENT HAD MUCH ANXIETY THIS EVENING. PER HER SON WHO VISITED HER LATE THIS STACY SHE DOES NOT SLEEP MUCH AT NIGHT BECAUSE OF HER ANXIETY. SHE COMPLAINS TONIGHT OF SOB AND DIFFICULTY MOVING TO AND FROM THE BEDSIDE COMMODE BECAUSE OF INCREASED WEAKNESS. RT ALANA DID COME AND GIVE PAITENT A BREATHING TREATMENT WITH LITTLE SUCCESS. AUTHORIZES 12.5MCG FENTANYL IVP FOR PAIN. PATIENT IS CURRENTLY RESTING COMFORTABLY EYES CLOSED. BREATHING IS 26RESPS PER MINUTE CURRENTLY. HER LIGHTS LOW AND CALL LIGHT IN REACH. WILL PASS ON IN REPORT REQUEST FOR SLEEP AID FOR THIS PATIENT.
[2022-04-01 04:43] LABS: Hematocrit 30.6 % (33.0-51.0); Hemoglobin 9.7 g/dL (11.5-16.0); Mean Corpuscular HGB 31.2 pg (26.0-34.0); Mean Corpuscular HGB Conc 31.7 g/dL (31.5-36.5); Mean Corpuscular Volume 98 fL (80-100); Mean Platelet Volume 9.1 fL (9.1-12.4); Platelet Count 270 K/mm3 (150-400); RDW Coefficient Variation 15.4 % (11.7-14.2); RDW Standard Deviation 55.2 fL (35.1-46.3); Red Blood Cell Count 3.11 M/mm3 (3.80-5.20); White Blood Cell Count 27.58 K/mm3 (4.00-11.30)
[2022-04-01 05:12] LABS: Albumin, Blood 2.2 g/dL (3.4-5.0); Albumin/Globulin Ratio 0.6 (0.8-1.8); Bilirubin, Total 0.7 mg/dL (0.1-1.0); Bun/Creatinine Ratio 36.4 (12.0-20.0); Calcium, Blood 8.6 mg/dL (8.5-10.1); Creatinine, Blood 0.58 mg/dL (0.40-1.00); Globulin, Blood 3.4 g/dL (2.2-4.0); Magnesium, Blood 2.4 mg/dL (1.6-2.4); Potassium, Blood 3.1 mmol/L (3.5-5.5); Total Protein, Blood 5.6 g/dL (6.4-8.2)
[2022-04-01 05:56] LABS: BAND PERCENT MAN 26 % (0-8); BASOPHILS PERCENT MAN 0 % (0-2); EOSINOPHILS PERCENT MAN 0 % (0-6); LYMPHOCYTES ABSOLUTE MAN 0.55 K/mm3 (0.84-5.20); LYMPHOCYTES PERCENT MAN 2 % (21-46); MONOCYTES ABSOLUTE MAN 1.37 K/mm3 (0.16-1.47); MONOCYTES PERCENT MAN 5 % (4-13); NEUTROPHILS ABSOLUTE MAN 25.64 K/mm3 (1.96-9.15); SEG NEUTROPHILS PERCENT MAN 67 % (41-73); TOTAL CELLS COUNTED 100
--- NOTE | 2022-04-01 18:09 | NUR ---
SHIFT SUMMARY NO ACUTE CHANGES DURING SHIFT. PT ALERT AND ORIENTED, FOLLOWS COMMANDS. C/O NAUSEA IN AFTERNOON, PRN MEDICATIONS ADMINISTERED. NO BM TODAY, PENDING STOOL SAMPLE. PO ABX STARTED TODAY. PT UP OOB TO BEDSIDE COMMODE. PT REMAINS ON 3L NC, SPO2 > 92%. CALL LIGHT WITHIN REACH.
[2022-04-02 00:16] LABS: Campylobacter Sp Not Detected (NOT DETECT); Cryptosporidium Not Detected (NOT DETECT); Cyclospora Cayetanensis Not Detected (NOT DETECT); E. Coli O157 Not Detected (NOT DETECT); Enteroaggregative E. coli-EAEC Not Detected (NOT DETECT); Enteropathogenic E. coli-EPEC Not Detected (NOT DETECT); Enterotoxigenic E. coli-ETEC Not Detected (NOT DETECT); Plesiomonas Shigelloides Not Detected (NOT DETECT); Salmonella Sp Not Detected (NOT DETECT); Shiga Toxin-prod E. coli-STEC Not Detected (NOT DETECT); Shigella/Enteroin E. coli-EIEC Not Detected (NOT DETECT); Vibrio Cholerae Not Detected (NOT DETECT); Vibrio Sp Not Detected (NOT DETECT); Yersinia Enterocolitica Not Detected (NOT DETECT)
[2022-04-02 00:17] LABS: Adenovirus F 40/41 Not Detected (NOT DETECT); Astrovirus Not Detected (NOT DETECT); Entamoeba Histolytica Not Detected (NOT DETECT); Giardia Lamblia Not Detected (NOT DETECT); Norovirus GI/GII Not Detected (NOT DETECT); Rotavirus A Not Detected (NOT DETECT); Sapovirus Not Detected (NOT DETECT)
[2022-04-02 05:18] LABS: Hematocrit 30.9 % (33.0-51.0); Hemoglobin 9.6 g/dL (11.5-16.0); Mean Corpuscular HGB 30.6 pg (26.0-34.0); Mean Corpuscular HGB Conc 31.1 g/dL (31.5-36.5); Mean Corpuscular Volume 98 fL (80-100); Mean Platelet Volume 9.2 fL (9.1-12.4); Platelet Count 304 K/mm3 (150-400); RDW Coefficient Variation 15.2 % (11.7-14.2); RDW Standard Deviation 55.2 fL (35.1-46.3); Red Blood Cell Count 3.14 M/mm3 (3.80-5.20); White Blood Cell Count 31.16 K/mm3 (4.00-11.30)
[2022-04-02 06:03] LABS: Albumin, Blood 2.1 g/dL (3.4-5.0); Albumin/Globulin Ratio 0.7 (0.8-1.8); Bilirubin, Total 0.5 mg/dL (0.1-1.0); Calcium, Blood 8.4 mg/dL (8.5-10.1); Creatinine, Blood 0.48 mg/dL (0.40-1.00); Globulin, Blood 3.2 g/dL (2.2-4.0); Magnesium, Blood 2.2 mg/dL (1.6-2.4); Phosphorus, Blood 1.2 mg/dL (2.5-4.9); Potassium, Blood 3.2 mmol/L (3.5-5.5); Total Protein, Blood 5.3 g/dL (6.4-8.2)
[2022-04-02 06:06] LABS: BAND PERCENT MAN 8 % (0-8); BASOPHILS PERCENT MAN 0 % (0-2); EOSINOPHILS PERCENT MAN 0 % (0-6); LYMPHOCYTES ABSOLUTE MAN 0.31 K/mm3 (0.84-5.20); LYMPHOCYTES PERCENT MAN 1 % (21-46); MONOCYTES ABSOLUTE MAN 1.86 K/mm3 (0.16-1.47); MONOCYTES PERCENT MAN 6 % (4-13); MYELOCYTE ABSOLUTE MAN 0.31 K/mm3 (0.00-0.00); MYELOCYTE PERCENT MAN 1 % (0-0); NEUTROPHILS ABSOLUTE MAN 28.66 K/mm3 (1.96-9.15); SEG NEUTROPHILS PERCENT MAN 84 % (41-73); TOTAL CELLS COUNTED 100
[2022-04-02 06:23] LABS: C-REACTIVE PROTEIN, EXT RANGE 15.7 mg/dL (0.000-0.300)
--- NOTE | 2022-04-02 06:44 | NUR ---
SHIFT SUMMARY; PATIENT HAD EPISODE OF NAUSEA WITH VOMITTING LAST NOC. SHE IS UNABLE AT THIS TIME TO SWALLOW ANY PILLS WITHOUT WRETCHING. SHE DID MANAGAE LAST NOC TO HAVE ATIVAN UNDER HER TONGUE TO DISOLVE AND TOOK SMALL AMOUNT OF APPLESAUCE WITH HER TRAZADONE SO SHE COULD SLEEP. HER SON WAS AT BEDSIDE LAST NOC AND WOULD LIKE TO SPEAK WITH THE SURGEON WHO CONSULTED WITH THE PATIENT AND FIND OUT WHAT WAS DISCUSSED HE IS NOT ABLE TO MAKE SENSE OUT OF WHAT HIS MOM IS TELLING HIM. HE FEELS THAT SHE DOES NOT UNDERSTAND THE RISKS OF NOT HAVING THE SURGERY. PATIENT HAD SMALL BOWEL MOVEMENT AND SAMPLE SENT TO LAB FOR GIPANEL THAT HAD BEEN ORDERED.
--- NOTE | 2022-04-02 11:01 | NUR ---
Palliative Care Consult Pt refusing surgical intervention. 82 year old female admitted to the hospital for Bowel Obstruction. Pt's medical history and comorbidities include: COPD ( 2-3 L O2 baseline), Chronic Respiratory Failure, R BKA, Colitis, HTN, CVA, Gastric Angiodysplagia, and Hypothyroidism. Pt resting in bed and is A&OX4. Pt reports 4/10 pain in her abdomen. Moderate Abdominal distention noted. Engaged in therapeutic conversation regarding goals of care. Assessed Pt's understanding of consequences regarding not having surgery. Pt states "My life will be shortened". She states "I'm 82 years old and I have had a good run". She reports not wanting a colostomy and states it would effect her quality of life. Discussed hospice as an option and educated on hospice philosophy. Pt expresses interest and is agreeable to hospice services. Pt gives this RN verbal permission to call her son Lawrence to relay wishes. She reports her son and his girlfriend lives with her and provides care for her. Called and spoke with Lawrence. Provided update and relayed Pt's wishes. Lawrence reports understanding of hospice as his dad was on hospice. Lawrence is also agreeable to hospice services. Discussed hospice agencies to choose from with Lawrence reporting plan to discuss further with Pt. No other concerns reported at this time. Son arrives to Pt's room. Discussed with Pt and son about considering comfort care. Educated on comfort care philosophy with V/U made by Pt and son. Both son and Pt are agreeable for comfort care and would like to continue antibiotics until D/C and would like to finish current bag of Clinimix. Spoke with Primary RADHA Phipps and discussed case. Spoke with Dr Quinn and discussed case. Placed comfort care order, comfort care order set, placed hospice referral. Continued antibiotics for comfort, and Pt would like Clinimix D/C after current bag. Spoke with RADHA Mcleod and discussed case. Palliative Care will remain available.
--- NOTE | 2022-04-02 17:59 | NUR ---
SHIFT ASSESSMENT PT ALERT AND ORIENTED, FOLLOWS COMMANDS. PT SEEN BY PALLIATIVE CARE, PLACED ON COMFORT CARE, PLANS TO D/C HOME WITH HOSPICE BEGINNING OF NEXT WEEK. DIET ADVANCED TO CLEARS, TOLERATING. PT ON CONTACT PRECAUTIONS D/T POSITIVE CDIFF RESULTS. CALL LIGHT WITHIN REACH.
--- NOTE | 2022-04-03 03:21 | NUR ---
SHIFT SUMMARY; PATIENT ON COMFORT CARE. SHE IS AO X 4. HER CLINIMIX WAS FINISHED INFUSING AND THEN DC'D. SHE IS STILL RECEIVING ZOSYN FOR C'DIFF. PAITENT UP TO BEDSIDE COMMODE NUMEROUS TIMES DURING EVENING WITH EXPLOSIVE DIARRHEA OBVIOUS C-DIFF SMELL AND APPEARANCE. HER SON VISITED [facility] AND SAID THAT [facility] WILL BE ASSISTING THIS PATIENT WITH HOSPICE SERVICES. THE PLAN IS FOR HER TO GO HOME ON HOSPICE MONDAY WITH HER SON ASSISTING HER AT HOME WITH HER CARE.
--- NOTE | 2022-04-03 08:52 | NUR ---
PT RESTING IN BED EATING BREAKFAST. PT ABLE TO REPOSTION UNASSISTED. MORNING MEDICATIONS ADMINISTERED. NO C/O NAUSEA OR PAIN AT THIS TIME. NO FAMILY AT BEDSIDE. CALL LIGHT WITHIN REACH. WILL CONTINUE TO MONITOR.
[2022-04-03 09:27] LABS: BASOPHILS ABSOLUTE AUTO 0.07 K/mm3 (0.00-0.23); BASOPHILS PERCENT AUTO 0 % (0-2); EOSINOPHILS ABSOLUTE AUTO 0.01 K/mm3 (0.00-0.68); EOSINOPHILS PERCENT AUTO 0 % (0-6); Hematocrit 31.9 % (33.0-51.0); Hemoglobin 10.2 g/dL (11.5-16.0); IMMATURE GRAN ABSOLUTE AUTO 0.29 K/mm3 (0.00-0.10); IMMATURE GRAN PERCENT AUTO 1 % (0-1); LYMPHOCYTES ABSOLUTE AUTO 0.85 K/mm3 (0.84-5.20); LYMPHOCYTES PERCENT AUTO 3 % (21-46); MONOCYTES ABSOLUTE AUTO 2.34 K/mm3 (0.16-1.47); MONOCYTES PERCENT AUTO 9 % (4-13); Mean Corpuscular HGB 30.7 pg (26.0-34.0); Mean Corpuscular Volume 96 fL (80-100); Mean Platelet Volume 9.3 fL (9.1-12.4); NEUTROPHILS ABSOLUTE AUTO 22.48 K/mm3 (1.96-9.15); NEUTROPHILS PERCENT AUTO 86 % (41-73); Platelet Count 304 K/mm3 (150-400); RDW Coefficient Variation 15.5 % (11.7-14.2); RDW Standard Deviation 55.1 fL (35.1-46.3); Red Blood Cell Count 3.32 M/mm3 (3.80-5.20); White Blood Cell Count 26.04 K/mm3 (4.00-11.30)
--- NOTE | 2022-04-03 11:51 | NUR ---
Comfort Care Visit Pt resting in bed with family at bedside. Pt appears painful and moderately dyspneic. Pt reports 6/10 pain in her abdomen and C/O shortness of breath. Abdomen appears more distended today. Pt agreeable for pain medication. Family confirms wishes for [facility]. Spoke with Primary RN Moise and relayed Pt's pain. Moise will offer Roxanol for symptom management. Palliative Care will remain available for symptom management and supportive visits.
--- NOTE | 2022-04-03 12:37 | NUR ---
PT RESTING IN BED. FAMILY PRESENT. PT C/O PAIN, MEDICATED WITH PRN MEDS. WILL CONTINUE TO MONITOR. NO NEEDS VOICED. CALL LIGHT WITHIN REACH.
--- NOTE | 2022-04-03 14:04 | NUR ---
PT RESTING IN BED. NO C/O PAIN OR NAUSEA. NO FAMILY AT BEDSIDE. NO NEEDS VOICED. WILL CONTINUE TO MONITOR. CALL LIGHT WITHIN REACH.
--- NOTE | 2022-04-03 16:52 | NUR ---
PT RESTING COMFORTABLY. NO C/O PAIN OR NAUSEA. FAMILY AT BEDSIDE. NO NEEDS VOICED AT THIS TIME. WILL CONTINUE TO MONITOR.
--- NOTE | 2022-04-03 18:09 | NUR ---
PT RESTING IN BED COMFORTABLY. FAMILY AT BEDSIDE. NO C/O PAIN/NAUSEA. NEW IV STARTED FOR IV ABX. NO NEEDS VOICED AT THIS TIME. WILL CONTINUE TO MONITOR.
--- NOTE | 2022-04-04 06:59 | NUR ---
Rn summary: Patient is alert, [place], on comfort care. Pt has been up to BSC with one assist, BM 1x this shift. She continues to receive zosyn for C-Diff. Pt remains on 3 liters O2. Has no C/O pain, has rested well between checks. Call light in reach, calls for assist.
--- NOTE | 2022-04-04 08:00 | NUR ---
PT PLEASANT COOP A/O. STATES DOING WELL, DENIES PAIN AT THIS TIME. WILL FOLLOW NEEDED. PLAN IS FOR D/C TODAY TO [place] WITH HOSPICE. PT STATES CAN GET INTOCAR WITH SON FOR TRANSPORT HOME IF WE PLACE PROSTETIC LEG FOR HER.
--- NOTE | 2022-04-04 09:49 | NUR ---
Comfort Care Visit Pt resting in bed upon arrival. Pt appears dyspneic and painful. Abdomen appears more distended today. Pt reports 6/10 pain and SOB. Pt is hopeful to D/C home today. Pt agreeable for comfort medication. Left message for Primary RN Ramy and reported Pt's pain and dyspnea. Recommendation given for Roxanol. Palliative Care will remain available.
[2022-04-04] MEDS ORDERED: ATROPINE SULFATE2 M1 SL (11:19)
[2022-04-04] MEDS ORDERED: Norco 5-325 Ta1 EACH PO (11:20)
[2022-04-04] MEDS ORDERED: Calcium Carbon500 MG PO (11:20)
[2022-04-04] MEDS ORDERED: Ativan1 MG PO (11:21)
[2022-04-04] MEDS ORDERED: DIFICID200 MG PO (11:21)
[2022-04-04] MEDS ORDERED: MORP20L SL (11:22)
[2022-04-04] MEDS ORDERED: TRAZ50 PO (11:23)
[2022-04-04] MEDS ORDERED: TRANSDERM-SCOP1 EA10 TD (11:23)
[2022-04-04] MEDS ORDERED: VISBIOME 112.51 EACH PO (11:24)
--- NOTE | 2022-04-04 13:51 | NUR ---
DISCHARGE REVIEWED WITH PT AND FAMILY. HARD SCRIPTS HANDED TO PT. PLACED IN D/C FOLDER. AIDE TO ASSIST TO DRESS, PT GOING HOME WITH FAMILY. IV PULLED INTACT. NO TELE. PT FAMILY VERBALIZED UNDERSTANDING MEDS AND INST. PT MEDICATED PAIN PRIOR TO D/C.
--- NOTE | 2022-04-04 14:41 | NUR ---
WHEELED PT TO DOOR BY CEDRIC AT 1400
== END 2022-04-04 13:58 | disposition hospice, home (50) | DRG 389 ==
LOC: ER 12:46 → SURS 21:43 → MEDS 21:43 → ENPENDDIS 04-04 10:00 → MEDS 04-04 13:58
PROVIDERS: Emergency Medicine; Family Medicine; ADMIT Internal Medicine
DX: K56.609 Unspecified intestinal obstruction, unspecified as to partial versus complete obstruction (principal); A04.72 Enterocolitis due to Clostridium difficile, not specified as recurrent; R65.10 Systemic inflammatory response syndrome (SIRS) of non-infectious origin without acute organ dysfunction; J96.10 Chronic respiratory failure, unspecified whether with hypoxia or hypercapnia; Z51.5 Encounter for palliative care; I10 Essential (primary) hypertension; J44.9 Chronic obstructive pulmonary disease, unspecified; E78.5 Hyperlipidemia, unspecified; E03.9 Hypothyroidism, unspecified; Z90.89 Acquired absence of other organs; Z87.440 Personal history of urinary (tract) infections; Z99.81 Dependence on supplemental oxygen; Z86.73 Personal history of transient ischemic attack (TIA), and cerebral infarction without residual deficits; Z90.49 Acquired absence of other specified parts of digestive tract; Z90.710 Acquired absence of both cervix and uterus; Z89.511 Acquired absence of right leg below knee; Z79.899 Other long term (current) drug therapy
CPT/HCPCS: 36415; 74176; 80053; 83690; 83735; 84100; 84145; 84484; 85025; 86140; 87324; 87507; 93005; 93010; 94640; 94664; 94760; 96374; 99285-25; A9270; J0744; J2405; J2543; J3010; J3411; J3480; J7030; J7050; J7060; J7120